=== PATIENT | male | born 1945 | race Caucasian/White ===

== ENCOUNTER 2023-09-14 01:44 | Emergency (ER) | payer OTHER, SELFPAY ==
[2023-09-14 01:44] VITALS: BMI 27.9
[2023-09-14 01:47] VITALS: BP 91/45
--- NOTE | 2023-09-14 03:29 | ED.GENMED ---
History of Present Illness
General
Chief Complaint: Fall
Source: patient and spouse
Exam Limitations: none
Time Seen by Provider: 09/14/23 03:16
Nursing documentation reviewed up to this point in time: agreed with
Travel History
Have you had any contact with someone who has COVID-19?: No
Do you have any symptoms of coronavirus? Fever > 100 degrees, chills, cough, shortness of breath, sore throat, loss of taste or smell, muscle aches, or headache?: No
History of Present Illness
History of Present Illness:
This is a 77-year-old gentleman who has history of atrial fibrillation chronically maintained on Eliquis, history of hypertension, COPD, smoker, prior history of bilateral total hip replacements.
While walking into the bathroom tonight he tripped over a throw rug falling onto his right side injuring his right lateral hip. He denies head injury nor loss of consciousness, was able to get himself up, get himself dressed and walked outside to
smoke a cigarette. He noted some right lateral hip pain that is worse with internal rotation of his hip and thus decided to come to the ED for further evaluation.
He denies neck nor back pain, denies thigh nor knee pain, denies weakness nor numbness.
He has not taken anything for discomfort.
He does have history of hypertension, monitors his blood pressure at home and generally runs 1 25-1 40 systolic.
BP at triage was 91/45 which is low for him. He denies dizziness nor lightheadedness. Repeat blood pressure during my evaluation 112/63.
Past History
Past History
ED Past Medical History: Arrthythmia (Paroxysmal atrial fibrillation), COPD, HTN and Other (Abdominal aortic aneurysm)
ED Past Surgical History: Orthopedic (Bilateral total hip replacements) and Other (Endovascular repair of a abdominal aortic aneurysm)
Social History
Tobacco: Smoker
Alcohol: Daily
Drug: None
Personal:
Living: with family
Employment: Retired
Family History
Family History: Hypertension
Phy Exam
Physical Exam
Physical Exam:
TRAUMA EXAM:
VITAL SIGNS: Vital signs reviewed, cooperative. 77-year-old gentleman appears his stated age, bright and alert, pleasant, easily communicative and in no acute distress. Accompanied by his .
DISTRESS: No active disease
EYES: Pupils reactive, no orbital trauma
NOSE: No deformity or epistaxis
FACE AND SCALP: No scalp or facial trauma, external canals no blood
NECK: Supple nontender
BACK: Back nontender, pelvis stable to compression
RESPIRATORY: No distress, scattered end expiratory wheezing bilaterally, no tender chest wall
CARDIAC: No murmur, pulses equal and strong
ABDOMEN: Soft nontender bowel sounds normal
SKIN: Skin intact no bleeding, color normal
EXTREMITIES: Mild tenderness right lateral hip. There is no soft tissue swelling, no deformity, full hip range of motion with increased pain with internal rotation only. No leg length discrepancy. Peripheral pulses are full and equal. No
tenderness to the knee nor lower legs.
NEUROLOGICAL: Alert, oriented, no motor deficits. Gait is steady.
PSYCH: Mood affect normal
Course
Orders/Labs/Results
Orders:
Orders
09/14/23 02:04
Hip, Right 2-3 Views [CR Hip - RT w/wo Pel 2-3 Vw*] Urgent
Comment:
Reason For Exam: fall pain
Include a pelvis x-ray?: Yes
09/14/23 03:29
Acetaminophen [Tylenol] 1,000 mg PO NOW STA
Vital Signs
Initial and Last Documented VS:
Initial Vital Signs
Temp Pulse Resp BP Pulse Ox
98.2 F 70 24 91/45 95
09/14/23 01:47 09/14/23 01:47 09/14/23 01:47 09/14/23 01:47 09/14/23 01:47
Last Documented Vital Signs
Temp Pulse Resp BP Pulse Ox
98.2 F 70 24 91/45 95
09/14/23 01:47 09/14/23 01:47 09/14/23 01:47 09/14/23 01:47 09/14/23 01:47
MDM/Problems Addressed
Differential Diagnosis Includes:
Patient presents after mechanical fall, tripping over a bathroom throw rug, falling onto his right side injuring his right lateral hip. No head injury, able to get himself up, get dressed and ambulate outside to his car.
He is chronically maintained on Eliquis but denies head injury, no evidence of head injury on exam and remains bright and alert. No indication for CT of the head.
No midline bony vertebral tenderness.
Right hip x-ray shows bilateral total hip replacements. There is no evidence of acute fracture. No evidence of pelvic fracture.
I suspect focal lateral hip contusion and recommend he take Tylenol as needed for pain and will give a dose now. Topical lidocaine patch is an option as well.
Recommend rest, local ice for the first 1 to 2 days and then transition to heat thereafter.
Borderline hypotension noted in triage but patient has been asymptomatic, no dizziness nor lightheadedness. Adamantly denies dizziness or lightheadedness as cause for fall and admits to tripping over a throw rug in the bathroom. BP improved upon
my evaluation 112/63.
Prompt follow-up with PCP for recheck.
*Radiology
Radiology exam reviewed: preliminary read by ED provider (X-ray shows bilateral total hip replacements. No evidence of fracture.)
*Pulse Oximetry
Patient hypoxic: no
*Critical Care Note
Total Time (30-74mins, 75-104mins- exclusive of procedures): Not Applicable
ED Attending Note
-
Portions of this chart may have been created with voice recognition software.� Occasional wrong word or��sound alike� substitutions may have occurred due to the inherent limitations of voice recognition software.
Discharge Plan
Departure
Patient Disposition: Home (Routine Discharge)
Date of Disposition: 09/14/23
Time of Disposition: 03:37
Patient with high blood pressure during this ER visit?: No
Condition: Good
Discharge Problem:
mechanical fall at home, Contusion of right hip
Instructions: Hip Pointer (DC)
Prescriptions:
No Action
multivitamin [Daily Multiple] 1 EACH tablet
1 tab PO DAILY
calcium carbonate [Calcium 600] 600 MG tablet
600 mg PO .EVERY 5 DAYS
Vitamin B Comp W-C
1 cap PO .EVERY 5 DAYS
vitamin E (dl, acetate) 400 UNITS capsule
400 units PO .EVERY 5 DAYS
omega 1-iji-cbu-fish oil 1 EACH capsule
1 ea PO .EVERY 5 DAYS
ascorbic acid (vitamin C) [Vitamin C] 500 MG tablet
500 mg PO .EVERY 5 DAYS
Eliquis 5 MG tablet
5 mg PO BID Qty: 60 0RF
metoprolol succinate 25 MG tablet extended release 24 hr
25 mg PO HS 30 Days Qty: 30 0RF
losartan 50 MG tablet
50 mg PO DAILY
pantoprazole [Protonix] 40 mg tablet,delayed release (DR/EC)
40 mg PO DAILY Qty: 14 0RF
Referrals:
Nirmala Garcia MD [Active] - Call in 1-3 days for appt
Interventions
Interventions:
*Risk Screen - Suicide Last Done: 09/14/23 01:47
*General Assessment Last Done: 09/14/23 01:47
*Neglect/Abuse Screening Last Done: 09/14/23 01:47
ED- Fall Risk Assessment Last Done: 09/14/23 01:47
*ED COVID-19 Vaccine History Last Done: 09/14/23 01:47
[2023-09-14] MEDS: TYLENOL 1000 MG PO (03:40)
[2023-09-14 03:42] VITALS: BP 112/63
== END 2023-09-14 04:05 | disposition home or self-care (01) ==
LOC: EMR 01:44
PROVIDERS: EMERGENCY PHYSICIAN Emergency Medicine; FAMILY PHYSICIAN Family Medicine
DX: S70.01XA Contusion of right hip, initial encounter (principal); W01.0XXA Fall on same level from slipping, tripping and stumbling without subsequent striking against object, initial encounter; F17.200 Nicotine dependence, unspecified, uncomplicated; Z96.643 Presence of artificial hip joint, bilateral; Z79.01 Long term (current) use of anticoagulants
CPT/HCPCS: 99283; 73502

== ENCOUNTER 2023-11-07 08:55 | Outpatient (RCR) | payer OTHER, SELFPAY | END 2023-11-07 23:59 | disposition home or self-care (01) | LOC: RPT 08:55 | PROVIDERS: ATTENDING PHYSICIAN Family Medicine | DX: M25.551 Pain in right hip (principal); R26.2 Difficulty in walking, not elsewhere classified; R26.89 Other abnormalities of gait and mobility; M62.81 Muscle weakness (generalized); R26.81 Unsteadiness on feet; Z91.81 History of falling | CPT/HCPCS: 97110; 97112; 97162 ==

== ENCOUNTER 2023-11-23 08:46 | Outpatient (RCR) | payer OTHER, SELFPAY | END 2023-11-23 10:11 | disposition home or self-care (01) | LOC: RPT 08:46 | PROVIDERS: ATTENDING PHYSICIAN Family Medicine | DX: M25.551 Pain in right hip (principal); Z91.81 History of falling; R26.2 Difficulty in walking, not elsewhere classified; R26.89 Other abnormalities of gait and mobility; Z73.6 Limitation of activities due to disability | CPT/HCPCS: 97110; 97112 ==

== ENCOUNTER → 2024-01-30 06:32 | Outpatient (REF) | payer OTHER, SELFPAY | LOC: RAD 06:32 | PROVIDERS: ATTENDING PHYSICIAN Family Medicine | DX: Z98.890 Other specified postprocedural states (principal) | CPT/HCPCS: 93923; 93925 ==

== ENCOUNTER 2024-04-29 11:30 | Emergency (ER) | payer OTHER, SELFPAY ==
[2024-04-29 11:34] VITALS: BP 135/75
[2024-04-29 12:14] LABS: % Basophils 0.8 % (0-2); % Eosinophils 2.2 % (0-6); % Immature Granulocytes 0.4 % (0-0.5); % Lymphocytes 16.3 % (20.5-51.1); % Monocytes 4.7 % (1.7-9.3); % Neutrophils 75.6 % (42.2-75.2); Absolute Basophils 0.1 10^3/uL (0-0.2); Absolute Eosinophils 0.2 10^3/uL (0-0.7); Absolute Lymphocytes 1.4 10^3/uL (1.2-3.4); Absolute Monocytes 0.4 10^3/uL (0.1-0.6); Absolute Neutrophils 6.5 10^3/uL (1.4-6.5); Hematocrit 45.6 % (39.0-52.0); Hemoglobin 15.2 g/dL (13.0-18.0); Mean Corp Hgb Conc. 33.3 g/dL (33.0-37.0); Mean Corpuscular Hgb 30.2 pg (27.0-31.0); Mean Corpuscular Volume 90.5 fL (80.0-94.0); Mean Platelet Volume 10.4 fL (7.4-10.4); Nucleated Red Blood Cells % 0 % (-); Platelet Count 200 10^3/uL (130-400); Red Blood Cell Count 5.04 10^6/uL (4.70-6.10); Red Cell Dist. Width 14.1 % (11.5-14.5); White Blood Cell Count 8.5 10^3/uL (4.8-10.8)
[2024-04-29 12:32] LABS: ALT (SGPT) 19 U/L (0-50); AST (SGOT) 22 U/L (17-59); Alkaline Phosphatase 58 U/L (38-126); Blood Urea Nitrogen 18 mg/dl (9-20); Calcium 9.2 mg/dl (8.4-10.2); Carbon Dioxide 29 mmol/L (22-30); Chloride 103 mmol/L (98-107); Glucose 146 mg/dl (70-99); Potassium 4.1 mmol/L (3.5-5.1); Sodium 141 mmol/L (135-145); Total Bilirubin 1.1 mg/dl (0.2-1.3); Total Protein 6.5 g/dl (6.3-8.2); eGFR > 60.00
[2024-04-29 12:44] VITALS: BP 135/86
[2024-04-29 12:45] VITALS: BMI 25.1
[2024-04-29 12:46] LABS: Troponin I < 0.012 ng/ml
[2024-04-29 13:00] VITALS: BP 126/72
--- NOTE | 2024-04-29 14:17 | ED.GENMED ---
History of Present Illness
General
Chief Complaint: Chest Pain
Time Seen by Provider: 04/29/24 12:23
History of Present Illness
History of Present Illness:
78-year-old male with history of A-fib on Eliquis, hypertension, AAA status post repair presenting to the emergency department for left-sided chest pain. Patient reports in the past 2 weeks has had intermittent sharp pain in his chest. Prior to
arrival, he was driving and had another episode of sharp pain followed by a fluttering in his chest. This prompted him to come to the hospital. Denies any known coronary artery disease. Reports history of ablation about 2 years ago. Denies
present chest pain or difficulty breathing. Denies abdominal pain or GI symptoms. Denies any exertional component to chest pain when it comes on. Denies fever or cough or additional acute medical complaint
Past History
Past History
ED Past Medical History: Arrthythmia (Paroxysmal atrial fibrillation), COPD, HTN and Other (Abdominal aortic aneurysm)
ED Past Surgical History: Orthopedic (Bilateral total hip replacements) and Other (Endovascular repair of a abdominal aortic aneurysm)
Social History
Tobacco: Smoker
Alcohol: Daily
Drug: None
Personal:
Living: with family
Employment: Retired
Family History
Family History: Hypertension
Phy Exam
Physical Exam
Physical Exam:
General: Well-appearing, no clinical signs of dehydration, nontoxic and in no acute distress
HEENT: protecting airway
Neck: appears supple
CV: Normal heart rate, regular rhythm
Resp: No accessory muscle use, no increased work of breathing, lungs clear to auscultation bilaterally
Abd: Soft and non-distended, no tenderness to palpation
Extremities: No deformities, no swelling, no erythema
Neuro: alert, no focal neurologic deficit
: deferred
Rectal: deferred
Psych: Normal affect
Skin: Intact
Scores
Heart Score for Chest Pain Patients
STEMI patient?: No
History: Slightly or Non-Suspicious
ECG: Normal
Age: >/= 65 years
Risk Factors: 1 or 2 Risk Factors
Troponin: </= Normal Limit
Heart Score for Chest Pain Patients: 3
Heart Score Risk: 2.5% MACE over next 6 weeks
Course
Orders/Labs/Results
Orders:
Orders
04/29/24 11:31
Electrocardiogram (*1) Urgent
Reason for Study: Chest Pain
EKG- Treatment ONCE
04/29/24 11:55
Complete Blood Count/With Diff Urgent
Comprehensive Metabolic Panel Urgent
Troponin I Urgent
04/29/24 12:58
CR Chest - 2 Views Urgent
Comment:
Reason For Exam: chest pain
04/29/24 14:30
Troponin I Urgent
Abnormal Lab Results
04/29/24
11:55
Neutrophils % 75.6 H %
(42.2-75.2)
Lymphocytes % 16.3 L %
(20.5-51.1)
Glucose 146 H mg/dl
(70-99)
04/29/24 11:55
04/29/24 11:55
Vital Signs
Initial and Last Documented VS:
Initial Vital Signs
Temp Pulse Resp BP Pulse Ox
98.1 F 72 16 135/75 98
04/29/24 11:34 04/29/24 11:34 04/29/24 11:34 04/29/24 11:34 04/29/24 11:34
Last Documented Vital Signs
Temp Pulse Resp BP Pulse Ox
98.1 F 68 16 135/86 97
04/29/24 11:34 04/29/24 12:45 04/29/24 12:45 04/29/24 12:44 04/29/24 12:45
MDM/Problems Addressed
MDM/Problems Addressed:
78-year-old male with history of hypertension, A-fib on Eliquis status post ablation presenting to the emergency department for intermittent chest pain for the past 2 weeks. Vital signs on arrival are normal.
On exam patient is well-appearing, resting comfortably, currently asymptomatic. EKG obtained, without acute ischemic abnormality or change from prior. Given duration of symptoms and intermittent nature, lower suspicion for ACS. Patient however
does have risk factors, so will obtain laboratory analysis including troponin. Will also obtain chest x-ray imaging. Lower suspicion for infectious pathology, denies fever or cough. Lower suspicion for PE, on anticoagulation, notes compliance, no
pleuritic quality. Lower suspicion for aortic catastrophe, known repair of AAA, normotensive. Will continue to closely monitor.
13:30 - Initial troponin undetectable and chest x-ray without acute cardiopulmonary disease. Will obtain second troponin.
Second troponin again undetectable. At this time lower suspicion for ACS. Feel stable for discharge, however given risk factors, advised outpatient follow-up with employment service specialist. Strict return precautions. Acute intubation patient verbalized
understanding
*EKG
Interpreted by ED Provider?: Yes
EKG Intrepretation Date: 04/29/24
EKG Intrepretation Time: 14:20
Interpretation: normal
Comparison EKG: no changes (06/16/22)
Heart Rate: 70
Rate: normal
Rhythm: sinus
Kennedy: normal axis
Interval: normal interval
QRS Pattern: normal QRS
Ischemia: no ischemia
*Critical Care Note
Total Time (30-74mins, 75-104mins- exclusive of procedures): Not Applicable
ED Attending Note
-
Portions of this chart may have been created with voice recognition software.� Occasional wrong word or��sound alike� substitutions may have occurred due to the inherent limitations of voice recognition software.
Discharge Plan
Departure
Prescriptions:
No Action
multivitamin [Daily Multiple] 1 EACH tablet
1 tab PO DAILY
calcium carbonate [Calcium 600] 600 MG tablet
600 mg PO .EVERY 5 DAYS
Vitamin B Comp W-C
1 cap PO .EVERY 5 DAYS
vitamin E (dl, acetate) 400 UNITS capsule
400 units PO .EVERY 5 DAYS
omega 1-oro-neo-fish oil 1 EACH capsule
1 ea PO .EVERY 5 DAYS
ascorbic acid (vitamin C) [Vitamin C] 500 MG tablet
500 mg PO .EVERY 5 DAYS
Eliquis 5 MG tablet
5 mg PO BID Qty: 60 0RF
metoprolol succinate 25 MG tablet extended release 24 hr
25 mg PO HS 30 Days Qty: 30 0RF
losartan 50 MG tablet
50 mg PO DAILY
pantoprazole [Protonix] 40 mg tablet,delayed release (DR/EC)
40 mg PO DAILY Qty: 14 0RF
Interventions
Interventions:
*Risk Screen - Suicide Last Done: 04/29/24 11:34
*Neglect/Abuse Screening Last Done: 04/29/24 11:34
ED- Cardiac Assessment Last Done: 04/29/24 12:46
Discharge Date and Time
Print Language: BURKINAN
[2024-04-29 14:46] VITALS: BP 153/78
[2024-04-29 15:18] LABS: Troponin I < 0.012 ng/ml
[2024-04-29 15:49] VITALS: BP 150/84
== END 2024-04-29 15:52 | disposition home or self-care (01) ==
LOC: EMR 11:30
PROVIDERS: Emergency Medicine; EMERGENCY PHYSICIAN Student in an Organized Health Care Education/Training Program; FAMILY PHYSICIAN Family Medicine
DX: R07.89 Other chest pain (principal); I48.0 Paroxysmal atrial fibrillation; Z79.01 Long term (current) use of anticoagulants; I10 Essential (primary) hypertension; F17.200 Nicotine dependence, unspecified, uncomplicated
CPT/HCPCS: 99285; 71046; 80053; 84484; 85025; 93005

== ENCOUNTER → 2024-05-17 06:24 | Outpatient (REF) | payer OTHER, SELFPAY | LOC: RAD 06:24 | PROVIDERS: ATTENDING PHYSICIAN Nurse Practitioner; FAMILY PHYSICIAN Family Medicine | DX: R07.89 Other chest pain (principal); I71.40 Abdominal aortic aneurysm, without rupture, unspecified | CPT/HCPCS: 76770 ==

== ENCOUNTER → 2024-05-31 13:34 | Outpatient (REF) | payer OTHER, SELFPAY | LOC: HWRAD 13:34 | PROVIDERS: ATTENDING PHYSICIAN Physician Assistant Surgical; FAMILY PHYSICIAN Family Medicine | DX: M97.8XXA Periprosthetic fracture around other internal prosthetic joint, initial encounter (principal) | CPT/HCPCS: 73700 ==

== ENCOUNTER → 2025-02-03 10:55 | Outpatient (REF) | payer OTHER, SELFPAY | LOC: HWRAD 10:55 | PROVIDERS: ATTENDING PHYSICIAN Surgery Vascular Surgery; FAMILY PHYSICIAN Family Medicine | DX: Z98.890 Other specified postprocedural states (principal) | CPT/HCPCS: 76770 ==

== ENCOUNTER → 2025-03-17 08:37 | Outpatient (REF) | payer OTHER, SELFPAY | LOC: HWRAD 08:37 | PROVIDERS: ATTENDING PHYSICIAN Family Medicine | DX: M85.89 Other specified disorders of bone density and structure, multiple sites (principal) | CPT/HCPCS: 77080 ==

== ENCOUNTER 2025-04-03 14:04 | Inpatient (IN) | payer OTHER, SELFPAY ==
[2025-04-03] VITALS (9 sets, daily range): BP systolic 103–147; BP diastolic 61–97; BMI 26.1; BMI 24.9
--- NOTE | 2025-04-03 09:29 | ED.GENMED ---
History of Present Illness
General
Chief Complaint: Breathing Problem
Time Seen by Provider: 04/03/25 09:14
Nursing documentation reviewed up to this point in time: agreed with
History of Present Illness
History of Present Illness:
79-year-old male presents to the ER for evaluation of cough and congestion along with shortness of breath now even with minimal exertion over the past few days. Patient's is present at bedside and states that she was recently diagnosed with
URI, had negative COVID and flu testing. Patient has not been on antibiotics recently. He has a current tobacco smoker but states that he has cut down his cigarette use. He has no prior history of need for admission for treatment of respiratory
illness. He denies any anterior chest pain but states that he feels a discomfort in his left upper back. He has a cough which is productive of sputum, slightly worsened than his baseline cough. No fevers. He reports diminished appetite, although
this has been an ongoing issue since he had COVID several months ago. He denies peripheral edema. No vomiting or diarrhea. He does not use inhalers on a daily basis. He is on long-term anticoagulation with Eliquis given his history of atrial
fibrillation status post ablation
Past History
Past History
ED Past Medical History: Arrthythmia (Paroxysmal atrial fibrillation), COPD, HTN and Other (Abdominal aortic aneurysm)
ED Past Surgical History: Orthopedic (Bilateral total hip replacements) and Other (Endovascular repair of a abdominal aortic aneurysm)
Social History
Tobacco: Smoker
Alcohol: Daily
Drug: None
Personal:
Living: with family
Employment: Retired
Family History
Family History: Hypertension
Review of Systems
Review of Systems
Allergies reviewed?: Yes
Phy Exam
Physical Exam
Physical Exam:
Patient is awake, alert, elderly, appears in no acute distress, head is NCAT, PERRL, EOMI mucous membranes moist, posterior pharynx is clear, no tonsillar exudates, no asymmetry, no stridor, no trismus, conjunctiva pink, heart regular rate and
rhythm without murmurs or ectopy, mild increased work of breathing, audible wheezing heard with rhonchi present diffusely on lung exam, no crepitus, no abnormal chest wall excursion, no JVD, abdomen is soft and nontender on palpation, extremities
without edema, GCS is 15
Course
Orders/Labs/Results
Orders:
Orders
04/03/25 09:12
Electrocardiogram (*1) Urgent
Reason for Study: Shortness of Breath
EKG- Treatment ONCE
04/03/25 09:27
Ipratropium/Albuterol Sulfate [Duoneb] 3 ml INH R NOW STA
04/03/25 09:28
Cardiac Monitoring- Treatment ONCE
IV Insert/Care/Rem.- Treatment PRN
COVID-19 Antigen Urgent
Source: Nasal Swab
Complete Blood Count/With Diff Urgent
Comprehensive Metabolic Panel Urgent
NT-proBNP Urgent
Prothrombin Time Urgent
Troponin I Urgent
CR Chest - 2 Views Urgent
Comment:
Reason For Exam: cough
Pulse Ox/cont/shift [RESP] Stat
Quantity: 1
04/03/25 09:29
Influenza A+B Rapid Molecular Urgent
SWATI Source: Nasal Swab
Specimen Description:
Vital Signs
Initial and Last Documented VS:
Initial Vital Signs
Temp Pulse Resp BP Pulse Ox
98.0 F 78 18 147/89 94
04/03/25 09:10 04/03/25 09:10 04/03/25 09:10 04/03/25 09:10 04/03/25 09:10
Last Documented Vital Signs
Temp Pulse Resp BP Pulse Ox
98.0 F 78 18 147/89 94
04/03/25 09:10 04/03/25 09:10 04/03/25 09:10 04/03/25 09:10 04/03/25 09:30
MDM/Problems Addressed
Differential Diagnosis Includes:
Differential diagnosis to consider but not limited to COVID, flu, COPD exacerbation, bronchitis, pneumonia along with other etiologies considered
Chronic conditions affecting care:
Advanced age, atrial fibrillation, current cigarette smoker, A-fib on chronic anticoagulation, hypertension, prior abdominal aortic aneurysm status post endovascular repair
*Pulse Oximetry
SaO2: 94
Oxygen Mode of Delivery: Room air
*EKG
Interpreted by ED Provider?: Yes (I independently viewed and interpreted twelve-lead EKG showing normal sinus rhythm, rate 76, leftward axis, borderline interventricular conduction delay, no ST elevation, this is a normal EKG similar to prior from
04/29/2024)
*Biomathematician Interpretation
Rate: normal (I independently viewed and interpreted rhythm strip showing normal sinus rhythm, no ectopy)
Update Note
Update Note:
Given diffuse rhonchi and wheezing heard on exam, will give DuoNeb and obtain chest x-ray along with screening labs to assess for pneumonia versus COPD exacerbation. Will also check for COVID and flu. Patient and present at bedside agree with
plan at current
ED Attending Note
-
Portions of this chart may have been created with voice recognition software.� Occasional wrong word or��sound alike� substitutions may have occurred due to the inherent limitations of voice recognition software.
Discharge Plan
Departure
Prescriptions:
No Action
multivitamin [Daily Multiple] 1 EACH tablet
1 tab PO DAILY
calcium carbonate [Calcium 600] 600 MG tablet
600 mg PO .EVERY 5 DAYS
Vitamin B Comp W-C
1 cap PO .EVERY 5 DAYS
vitamin E (dl, acetate) 400 UNITS capsule
400 units PO .EVERY 5 DAYS
omega 1-juh-gov-fish oil 1 EACH capsule
1 ea PO .EVERY 5 DAYS
ascorbic acid (vitamin C) [Vitamin C] 500 MG tablet
500 mg PO .EVERY 5 DAYS
Eliquis 5 MG tablet
5 mg PO BID Qty: 60 0RF
metoprolol succinate 25 MG tablet extended release 24 hr
25 mg PO HS 30 Days Qty: 30 0RF
losartan 50 MG tablet
50 mg PO DAILY
pantoprazole [Protonix] 40 mg tablet,delayed release (DR/EC)
40 mg PO DAILY Qty: 14 0RF
Interventions
Interventions:
*Risk Screen - Suicide Last Done: 04/03/25 09:10
*Neglect/Abuse Screening Last Done: 04/03/25 09:10
Discharge Date and Time
Print Language: JORDANIAN
[2025-04-03] MEDS: DUONEB 3 ML INH ×3 (09:41→19:29)
[2025-04-03 10:08] LABS: Hematocrit 51.2 % (39.0-52.0); Hemoglobin 17.3 g/dL (13.0-18.0); Mean Corp Hgb Conc. 33.8 g/dL (33.0-37.0); Mean Corpuscular Volume 93.8 fL (80.0-94.0); Nucleated Red Blood Cells % 0 % (-); Platelet Count 232 10^3/uL (130-400); Red Cell Dist. Width 13.2 % (11.5-14.5)
--- NOTE | 2025-04-03 10:09 | ED.GENMED ---
History of Present Illness
General
Chief Complaint: Breathing Problem
Time Seen by Provider: 04/03/25 09:14
Nursing documentation reviewed up to this point in time: agreed with
History of Present Illness
History of Present Illness:
79-year-old male presents to the ER for evaluation of shortness of breath and cough which has been worsening over the past 4 days. Patient's is present at bedside and reports that she has had URI symptoms and was seen by her PCP-had negative
COVID and flu testing and was diagnosed with URI. Patient has not been on antibiotics recently. He reports that he continues to smoke cigarettes daily. He has no prior history of requiring hospitalization for his lungs. He does not use any
inhalers on a daily basis. He reports poor appetite but this has been an ongoing issue since he had COVID several months ago. He reports an occasional feeling of fluttering in his chest and upper abdomen, but no anterior chest pain per se. He
does report a feeling of tightness in his left upper back which is associated with his cough and feeling of congestion. He reports severe shortness of breath with now minimal exertion over the past few days. No peripheral edema. No prior history
of CHF. No prior history of ACS per se but is on long-term anticoagulation for atrial fibrillation. He does have a prior history of hypertension also. He denies fever. No sore throat. No syncope.
Past History
Past History
ED Past Medical History: Arrthythmia (Paroxysmal atrial fibrillation), COPD, HTN and Other (Abdominal aortic aneurysm)
ED Past Surgical History: Orthopedic (Bilateral total hip replacements) and Other (Endovascular repair of a abdominal aortic aneurysm)
Social History
Tobacco: Smoker
Alcohol: Daily
Drug: None
Personal:
Living: with family
Employment: Retired
Family History
Family History: Hypertension
Review of Systems
Review of Systems
Allergies reviewed?: Yes
Phy Exam
Physical Exam
Physical Exam:
Patient is awake, alert, elderly, mild increased work of breathing, head is NCAT, PERRL, EOMI mucous membranes moist, no stridor, no trismus, posterior pharynx appears normal without asymmetry or exudate, conjunctiva pink, and heart regular rate and
rhythm without murmurs or ectopy, audible wheezing, rhonchi present diffusely on exam, no abnormal chest wall excursion, no crepitus, no JVD, abdomen is soft and nontender on palpation, extremities without edema, GCS is 15
Scores
Heart Failure Risk
Heart Failure Risk Score: Not Applicable
Course
Orders/Labs/Results
Orders:
Orders
04/03/25 09:12
Electrocardiogram (*1) Urgent
Reason for Study: Shortness of Breath
EKG- Treatment ONCE
04/03/25 09:27
Ipratropium/Albuterol Sulfate [Duoneb] 3 ml INH R NOW STA
04/03/25 09:28
Cardiac Monitoring- Treatment ONCE
IV Insert/Care/Rem.- Treatment PRN
CR Chest - 2 Views Urgent
Comment:
Reason For Exam: cough
Pulse Ox/cont/shift [RESP] Stat
Quantity: 1
04/03/25 09:44
COVID-19 Antigen Urgent
Source: Nasal Swab
Complete Blood Count/With Diff Urgent
Comprehensive Metabolic Panel Urgent
NT-proBNP Urgent
Prothrombin Time Urgent
Troponin I Urgent
Influenza A+B Rapid Molecular Urgent
SWATI Source: Nasal Swab
Specimen Description:
04/03/25 10:21
Legionella Urinary Antigen Urgent
SWATI Source: Urine
Specimen Description:
CefTRIAXone [Rocephin] 1,000 mg IV NOW STA
Doxycycline Hyclate [Vibramycin] 200 mg 0.9% Sodium Chloride 250 ml [Nss] 250 ml IV NOW
MethylPREDNISolone PF [Solu-Medrol Pf] 125 mg IV NOW STA
04/03/25 10:29
Blood Culture Q30M
SWATI Source: Blood/Venous
Specimen Description:
04/03/25 11:00
Blood Culture Q30M
SWTAI Source: Blood/Venous
Specimen Description:
Abnormal Lab Results
04/03/25
09:44
WBC 10.9 H 10^3/uL
(4.8-10.8)
MCH 31.7 H pg
(27.0-31.0)
Abs Immat Gran (auto) 0.1 H 10^3/uL
(0-0.05)
Absolute Neuts (auto) 8.9 H 10^3/uL
(1.4-6.5)
Absolute Lymphs (auto) 0.8 L 10^3/uL
(1.2-3.4)
Absolute Monos (auto) 0.9 H 10^3/uL
(0.1-0.6)
Immature Gran % 0.6 H %
(0-0.5)
Neutrophils % 81.7 H %
(42.2-75.2)
Lymphocytes % 7.4 L %
(20.5-51.1)
PT 16.9 H Sec
(11.4-14.6)
Creatinine 0.6 L mg/dL
(0.7-1.3)
Glucose 106 H mg/dl
(70-99)
Total Bilirubin 1.5 H mg/dl
(0.2-1.3)
04/03/25 09:44
04/03/25 09:44
Mild elevation white blood count
Vital Signs
Initial and Last Documented VS:
Initial Vital Signs
Temp Pulse Resp BP Pulse Ox
98.0 F 78 18 147/89 94
04/03/25 09:10 04/03/25 09:10 04/03/25 09:10 04/03/25 09:10 04/03/25 09:10
Last Documented Vital Signs
Temp Pulse Resp BP Pulse Ox
98.0 F 73 26 147/89 94
04/03/25 09:10 04/03/25 09:54 04/03/25 09:54 04/03/25 09:10 04/03/25 10:14
MDM/Problems Addressed
Differential Diagnosis Includes:
Differential diagnosis to consider but not limited to COVID, flu, pneumonia, COPD exacerbation, congestive heart failure, ACS along with other etiologies considered
Chronic conditions affecting care:
Atrial fibrillation on long-term anticoagulation, current smoker, advanced age
*Radiology
Radiology exam reviewed: preliminary read by ED provider (I independently viewed and interpreted two-view chest x-ray showing left lower lobe consolidation with pleural effusion, new compared to prior x-ray)
*Pulse Oximetry
SaO2: 94
Oxygen Mode of Delivery: Room air
Patient hypoxic: no
*EKG
Interpreted by ED Provider?: Yes (I independently viewed and interpreted twelve-lead EKG showing normal sinus rhythm, rate 76, nonspecific intraventricular conduction delay without ST elevation, no change compared to prior 04/29/2024)
*[employer] Interpretation
Rate: normal (I independently viewed and interpreted rhythm strip showing normal sinus rhythm, no ectopy)
*Critical Care Note
Total Time (30-74mins, 75-104mins- exclusive of procedures): Not Applicable
Update Note
Update Note:
Will give nebulizer treatment for diffuse rhonchi heard on exam. Patient and present at bedside agree with plan for labs and x-ray. Will reassess
1022: I dependently viewed and interpreted x-ray showing new pneumonia. Broad-spectrum antibiotics ordered along with urine Legionella antigen and blood cultures. Awaiting remaining tests. Anticipate admission given increased work of breathing
and significant dyspnea on exertion
1050: Patient feeling much better after neb treatment. I reviewed with patient and present bedside presence of pneumonia and benefit of admission given severe dyspnea on exertion, although resting pulse ox is within normal limits. They agree
with plan. Patient presentation reviewed with hospitalist who accepts patient for admission.
ED Attending Note
-
Portions of this chart may have been created with voice recognition software.� Occasional wrong word or��sound alike� substitutions may have occurred due to the inherent limitations of voice recognition software.
Discharge Plan
Departure
Patient Disposition: Admit
Date of Disposition: 04/03/25
Time of Disposition: 10:53
Presentation/result/management discussed w/ accepting MD/DO: Hospitalist
Discharge Problem:
Pneumonia
Prescriptions:
No Action
Eliquis 5 MG tablet
5 mg PO BID Qty: 60 0RF
losartan 50 MG tablet
50 mg PO DAILY
acetaminophen [Tylenol] 325 mg Tablet
650 mg PO Q6HPRN PRN (Reason: mild pain)
metoprolol succinate [Toprol XL] 50 mg Tablet Extended Release 24 Hr
50 mg PO HS
Referrals:
UNKNOWN - PT NOT,INTERVIEWE [Family Provider]
Interventions
Interventions:
*Risk Screen - Suicide Last Done: 04/03/25 09:10
*General Assessment Last Done: 04/03/25 09:57
*Neglect/Abuse Screening Last Done: 04/03/25 09:10
*ED- Fall Risk Assessment Last Done: 04/03/25 09:57
*ED COVID-19 Vaccine History Last Done: 04/03/25 09:57
ED- Cardiac Assessment Last Done: 04/03/25 09:59
ED- Pulmonary Assessment Last Done: 04/03/25 09:59
Discharge Date and Time
Print Language: SAMMARINESE
[2025-04-03 10:13] LABS: INR 1.32; PT 16.9 Sec (11.4-14.6)
[2025-04-03 10:14] LABS: COVID-19 Antigen Negative (Negative)
[2025-04-03 10:21] LABS: ALT (SGPT) 16 U/L (0-50); AST (SGOT) 20 U/L (17-59); Albumin 3.7 g/dl (3.5-5.0); Alkaline Phosphatase 72 U/L (38-126); Blood Urea Nitrogen 13 mg/dl (9-20); Calcium 8.6 mg/dl (8.4-10.2); Carbon Dioxide 25 mmol/L (22-30); Chloride 106 mmol/L (98-107); Estimated Creatinine Clearance 106 ml/min; Glucose 106 mg/dl (70-99); Potassium 4.7 mmol/L (3.5-5.1); Sodium 135 mmol/L (135-145); Total Protein 6.4 g/dl (6.3-8.2); eGFR > 60.00
[2025-04-03 10:28] LABS: Troponin I < 0.012 ng/ml
[2025-04-03] MEDS: SOLU-MEDROL PF 125 MG IV (10:38)
[2025-04-03] MEDS: ROCEPHIN 1000 MG IV (11:05)
[2025-04-03] MEDS: VIBRAMYCIN 270 MG IV (11:35)
--- NOTE | 2025-04-03 13:56 | HPS.HSE ---
Family Physician
-
Family Physician: INTERVIEWE UNKNOWN - PT NOT
Chief Complaint
-
Shortness of breath
History of Present Illness
79-year-old male with past medical history of paroxysmal atrial fibrillation, hypertension, abdominal aortic aneurysm came to the hospital with dyspnea on exertion and cough that has been going on for few days. Per patient his symptoms started
after his had upper respiratory symptoms. Since the symptoms do not improve with prompted patient to come to the ED for evaluation. He denies any chest pain. Denies any abdominal pain, nausea, vomiting, diarrhea, constipation. Denies any
fever/chills. Patient still continues to smoke. He reported he smokes half pack a day.
Medical History
Past Medical History
Past Medical History: Reports Arrhythmia (Paroxysmal atrial fibrillation), HTN and Other (Abdominal aortic aneurysm)
Past Surgical History: Reports Orthopedic and Other (Endovascular repair of abdominal aortic aneurysm)
Social History
Tobacco: Smoker
Alcohol: Occasional
Drug: None
Family History
Family History: Not pertinent
Allergies / Home Medications
Allergies reflects when Allergies were last updated in [facility].
Home Medications with original date entered in [facility]
Allergy/Medication List:
Allergies
Allergy/AdvReac Type Severity Reaction Status Date / Time
No Known Allergies Allergy Verified 04/03/25 09:12
Home Medications
apixaban 5 mg tablet (Eliquis) 5 mg PO BID #60 tabs 05/06/17
losartan 50 mg tablet 50 mg PO DAILY 07/03/20
acetaminophen 325 mg tablet (Tylenol) 650 mg PO Q6HPRN PRN mild pain 04/03/25
metoprolol succinate 50 mg tablet,extended release 24 hr (Toprol XL) 50 mg PO HS 04/03/25
Review of Systems
-
History Source: Patient
A 12 point ROS was completed and negative except as noted: Yes
Respiratory: Reports Cough and Trouble Breathing
Physical Exam
Vital Signs
Vital Signs
Temp Pulse Resp BP Pulse Ox
98.0 F 82 24 140/97 94
04/03/25 09:10 04/03/25 13:15 04/03/25 13:15 04/03/25 13:00 04/03/25 10:45
Physical Exam
General: Well Nourished and No Apparent Distress
HEENT: NormoCephalic, Anicteric and Moist mucous membranes
Respiratory: Clear, Wheezes and Non Labored Respirations
Cardiac: S1/S2 and Regular Rhythm
Breast: Deferred by me
GI: Soft, Non Tender, Non Distended and Normal Bowel Sounds
Rectal: Deferred by Provider
Genito-urinary: No Rcihards
Musculoskeletal: No Edema
Neuro: Awake, Alert, Oriented and AO x 3
Psych: Calm and Intact Judgment/Insight
Laboratory Results
-
04/03/25 09:44
04/03/25 09:44
Laboratory Results
PT 16.9 Sec (11.4-14.6) H 04/03/25 09:44
INR 1.32 04/03/25 09:44
Total Bilirubin 1.5 mg/dl (0.2-1.3) H 04/03/25 09:44
AST 20 U/L (17-59) 04/03/25 09:44
ALT 16 U/L (0-50) 04/03/25 09:44
Alkaline Phosphatase 72 U/L (38-126) 04/03/25 09:44
Troponin I < 0.012 ng/ml 04/03/25 09:44
Data Reviewed
-
Diagnostic Radiology: Image Personally Visualized and interpreted and Discussed with Physician
Lab Data: Labs Reviewed by me and Discussed with Patient
Impression/Plan
-
Dyspnea likely secondary to left lower lobe pneumonia with possible associated pleural effusion
Chest x-ray consistent with pneumonia and pleural effusion
IR consult for thoracentesis, labs ordered. Current smoker
Started ceftriaxone and doxycycline
DuoNeb 4 times daily and as needed with associated bronchiolitis
COVID, flu negative. Legionella negative. Check strep
Tessalon Perles
Paroxysmal atrial fibrillation
Continue with metoprolol, Eliquis
History of hypertension
Continue losartan
History of abdominal aortic aneurysm status post repair
Follows up with vascular outpatient
Monitor
DVT prophylaxis
Eliquis
Full code
I spent a total of 76 minutes with the patient or on the floor. More than 50% of this time involved counseling and coordination of care.
[2025-04-03 16:14] LABS: LDH 218 U/L (120-246)
[2025-04-03 16:22] LABS: Body Fluid Second Tech FB
[2025-04-03] MEDS: NICODERM TRANSDERMAL 14 MG TRANSDERM (17:33)
[2025-04-03] MEDS: VIBRAMYCIN 100 MG PO (20:33)
[2025-04-03] MEDS: ELIQUIS 5 MG PO (20:34)
[2025-04-03] MEDS: TOPROL XL 50 MG PO (21:51)
[2025-04-04 03:45] VITALS: BP 135/83
[2025-04-04 06:00] VITALS: BMI 24.6
[2025-04-04] MEDS: DUONEB 3 ML INH ×4 (07:31→19:41)
[2025-04-04] MEDS: NICODERM TRANSDERMAL 14 MG TRANSDERM (08:50)
[2025-04-04] MEDS: VIBRAMYCIN 100 MG PO ×2 (08:50→21:24)
[2025-04-04] MEDS: COZAAR 50 MG PO (08:50)
[2025-04-04] MEDS: ELIQUIS 5 MG PO ×2 (08:50→21:23)
[2025-04-04 08:54] LABS: Blood Urea Nitrogen 13 mg/dl (9-20); Calcium 8.7 mg/dl (8.4-10.2); Carbon Dioxide 28 mmol/L (22-30); Chloride 105 mmol/L (98-107); Estimated Creatinine Clearance 91 ml/min; Glucose 100 mg/dl (70-99); Hematocrit 47.1 % (39.0-52.0); Hemoglobin 16.3 g/dL (13.0-18.0); Mean Corp Hgb Conc. 34.6 g/dL (33.0-37.0); Mean Corpuscular Volume 93.5 fL (80.0-94.0); Nucleated Red Blood Cells % 0 % (-); Platelet Count 239 10^3/uL (130-400); Potassium 4.3 mmol/L (3.5-5.1); Red Cell Dist. Width 13.0 % (11.5-14.5); Sodium 137 mmol/L (135-145); eGFR > 60.00
[2025-04-04 09:39] VITALS: BP 155/87
[2025-04-04] MEDS: ROCEPHIN 1000 MG IV (10:05)
[2025-04-04] MEDS: STERILE WATER FOR INJECTION 10 ML IV (10:05)
[2025-04-04 10:07] VITALS: BMI 24.6
[2025-04-04 11:05] VITALS: BP 132/66
--- NOTE | 2025-04-04 12:39 | W.PN.HOSP.TC ---
Today's Communication/Plan
-
Monitor vitals
See plan
Follow Thora studies
Pulmonary evaluation
Will need home O2 evaluation prior to discharge
Assessment / Plan
Assessment / Plan
General: Well Nourished and No Apparent Distress
HEENT: NormoCephalic, Anicteric and Moist mucous membranes
Respiratory: Clear, Wheezes and Non Labored Respirations
Cardiac: S1/S2 and Regular Rhythm
GI: Soft, Non Tender, Non Distended and Normal Bowel Sounds
Genito-urinary: No Richards
Musculoskeletal: No Edema
Neuro: Awake, Alert, Oriented and AO x 3
Psych: Calm and Intact Judgment/Insight
Dyspnea likely secondary to left lower lobe pneumonia with possible associated pleural effusion
Chest x-ray consistent with pneumonia and pleural effusion
Status post Thora centesis 04/03 with removal of 2 L fluid, appears exudative. Cytology pending.follow cx. Current smoker
Started ceftriaxone and doxycycline. Check MRSA screen
DuoNeb 4 times daily and as needed with associated bronchiolitis
COVID, flu negative. Legionella negative. Strep negative
[facility] Monahan
Pulmonary evaluation, consider CT scan after Thora
Paroxysmal atrial fibrillation
Continue with metoprolol, Eliquis
History of hypertension
Continue losartan
History of abdominal aortic aneurysm status post repair
Follows up with vascular outpatient
Monitor
DVT prophylaxis
Eliquis
Full code
I spent a total of 52 minutes with the patient or on the floor. More than 50% of this time involved counseling and coordination of care.
Anticipated Discharge: 24 - 48 hours
Subjective/Interval History
-
Date of Service: April 04, 2025
Denies pain
Objective Data
-
Labs:
Laboratory Results
04/04/25
06:46
WBC 17.5 H
Hgb 16.3
Hct 47.1
Plt Count 239
Sodium 137
Potassium 4.3
Chloride 105
Carbon Dioxide 28
BUN 13
Creatinine 0.7
Glucose 100 H
Calcium 8.7
Vital Signs:
Vital Signs
Temp Pulse Resp BP Pulse Ox
98.9 F 66 16 132/66 98
04/04/25 11:05 04/04/25 11:17 04/04/25 11:17 04/04/25 11:05 04/04/25 11:17
I&O
04/03/25 04/04/25 04/05/25
06:59 06:59 06:59
Intake Total 960 / 960 480 / 480
Balance 960 / 960 480 / 480
--- NOTE | 2025-04-04 12:40 | CON.PUL ---
Consultation
Consultation Request
Date/Time Consultation Requested: 04/04/2025
Date/Time Consultation Performed: 04/04/2024
Requesting Provider: Dr. Paniagua
Performing Provider: Dr. Eddie Valdez
Reason for Consultation: Pneumonia/pleural effusion
Medical History
-
History of Present Illness:
79-year-old male with past medical history significant for paroxysmal atrial fibrillation, hypertension, abdominal aortic aneurysm who came to the hospital complaining of exertional dyspnea and coughing for the last few days.
recently had an upper respiratory infection.
Due to above symptoms patient came to the emergency room for evaluation.
Denies hemoptysis, night sweats or chills.
Denies lightheadedness or syncope.
Denies swallowing problems.
He is an active smoker of about half a pack per day.
-
Patient reports history of chronic coughing and minimal phlegm production from his smoking.
He also has a component of chronic exertional dyspnea
For many years mainly related to leg weakness.
He does goes to the gym and he does upper body strength no cardio.
He states that his weight has been stable
Denies chest discomfort
Past Medical History
Past Medical History: Other (See assessment and plan)
Social History
Tobacco: Smoker
Alcohol: Occasional
Drug: None
Personal:
Living: With Family
Occupational Exposures: Denies
Environmental Exposures: Denies
Family History
Family History: Reviewed & Not Pertinent
Allergies / Home Medications
Allergies
Allergy/AdvReac Type Severity Reaction Status Date / Time
No Known Allergies Allergy Verified 04/03/25 09:12
Home Medications
�Medication �Instructions �Recorded �Confirmed �Last Taken �Type
apixaban 5 mg tablet (Eliquis) 5 mg PO BID #60 tabs 05/06/17 04/03/25 04/03/25 Rx
losartan 50 mg tablet 50 mg PO DAILY Blood Pressure 07/03/20 04/03/2525 History
acetaminophen 325 mg tablet 650 mg PO Q6HPRN PRN mild pain 04/03/25 04/03/25 04/02/25 History
(Tylenol)
metoprolol succinate 50 mg 50 mg PO HS Blood Pressure 04/03/25 04/03/25 04/02/25 History
tablet,extended release 24 hr
(Toprol XL)
Review of Systems
-
History Source: Patient
All other systems: Negative unless noted
Vitals / Labs / Diagnostic Testing
Vital Signs
Temp Pulse Resp BP Pulse Ox
98.9 F 66 16 132/66 98
04/04/25 11:05 04/04/25 11:17 04/04/25 11:17 04/04/25 11:05 04/04/25 11:17
Lab Data
04/04/25 06:46
04/04/25 06:46
Microbiology
04/03/25 15:34 Pleural Fluid Body Fluid Culture - Preliminary
No Growth After 18-24 Hours
04/03/25 15:34 Pleural Fluid Gram Stain - Preliminary
04/03/25 11:01 Blood/Venous Blood Culture - Preliminary
No Growth in 24 hours- Final report to follow
04/03/25 10:29 Blood/Venous Blood Culture - Preliminary
No Growth in 24 hours- Final report to follow
04/03/25 15:34 Pleural Fluid Fungal Culture - Preliminary
Culture in progress.
Positive cultures are reported as soon as detected.
Final report to follow in four to five weeks.
04/03/25 11:01 Urine Streptococcus pneumoniae Antigen (M - Final
Negative for Streptococcus pneumoniae antigen.
A negative result does not exclude infection with
Streptococcus pneumoniae. Clinical correlation is
recommended.
04/03/25 11:01 Urine Legionella Urinary Antigen - Final
Negative for Legionella pneumophila Serogroup 1 antigen.
A negative result does not rule out the possiblity of
Legionella infection due to other serogroups or species of
Legionella. Clinical correlation is recommended.
04/03/25 09:44 Nasal Swab Influenza Types A & B (ZANE) - Final
Negative for Influenza A & B, NAAT
Negative results must be combined with clinical observations
and patient history.
Nucleic Acid Amplification test (NAAT)performed on the
[employer] platform.
Diagnostic Testing:
Physical Exam
-
HEENT: Normocephalic
Cardiovascular: S1/S2
Respiratory: Wheeze (Mild bilateral expiratory.) and Non-Labored Respirations
GI: Soft and Non Distended
Neurology: Awake, Oriented, AO x 3 and No Motor Deficits
Skin: Good Color
General: Respiratory Distress (n) and Comfortable
Assessment
-
79-year-old male who is a smoker, history of atrial fibrillation on anticoagulation came to the hospital with shortness of breath and coughing for several days. On x-ray found to have left lower lobe infiltrate with associated pleural effusion. We
were consulted for evaluation of pleural effusion./Pneumonia/abnormal chest x-ray
Left community-acquired pneumonia
Chest x-ray 04/03/2025: Reviewed with left lower lobe infiltrate with associated infiltrate.
Left pleural effusion: Likely parapneumonic.
Thoracentesis 04/03/2025: pH 7.42/white blood cells 3750/80% mononuclear/glucose 182/total protein 4.1/LDH 839-exudate
Cultures-pain
Cytology
Leukocytosis
Chronic shortness of breath for years/chronic cough-chronic bronchitis likely
Conditions present prior admission:
Paroxysmal atrial fibrillation
Hypertension
Aortic abdominal aneurysm
Tobacco abuse
Assessment and plan:
Clinical picture consistent with community-acquired pneumonia with parapneumonic effusion.
Continue with current antibiotics as you are-ceftriaxone/doxycycline.
Afebrile
Follow leukocytosis
Microbiology reviewed and so far negative
MRSA screening pending
-
Body fluid of the left pleural effusion negative so far. Negative cytology.
Pleural fluid exudate. Without high risk features. It is interesting that this mononuclear-will need to follow-up cytology patient is high risk for cancer.
Will need short-term radiographic follow-up in the next 4 weeks. If there is no clearance of infiltrates CT of the chest will be necessary. I did discuss this with the patient and he understands.
-
Suspect COPD/chronic bronchitis-no PFTs available.
Mildly bronchospastic on exam-decreased breath sounds on the left
May continue nebulizer while in the hospital for secretion clearance will add Pulmicort twice a day
Acapella device for secretion clearance
If continues to wheeze can discharge nebulizers temporarily until seen in the office.
-
Smoking cessation encouraged
Agree with nicotine patch
Recommend outpatient pulmonary follow-up with pulmonary function testing etc. rule out COPD.
-
Will continue to follow.
[2025-04-04 15:50] VITALS: BP 121/63
--- NOTE | 2025-04-04 15:54 | CM ---
Patient seen bedside w/ spouse. Initial assessment completed. Patient is a 79-year-old male with past medical history of paroxysmal atrial fibrillation, hypertension, abdominal aortic aneurysm came to the hospital with dyspnea on exertion and cough
that has been going on for few days.
Patient resides w/ spouse in a single story rancher style home, no steps to enter. Patient is independent w/ ambulation, no device required. Independent w/ ADLs and personal care. Patient has shower seat in bathroom. Denies SNF/HC hx.
Address, point of contact and insurance verified
PCP: Nirmala Garcia. Left message w/ admissions to add in chart
Pharmacy: [facility]
Plan: Home, no needs likely
--- NOTE | 2025-04-04 16:25 | PTCARENOTE ---
Patient walked around unit today, denied feeling sob on exertion. Pulmonology saw patient today. Pt awaiting fluid culture results from thoracentesis
[2025-04-04] MEDS: PULMICORT 0.5 MG INH (19:41)
[2025-04-04 19:55] VITALS: BP 135/66
[2025-04-04] MEDS: TOPROL XL 50 MG PO (21:24)
[2025-04-04 23:49] VITALS: BP 155/87
[2025-04-05 03:40] VITALS: BP 145/80
[2025-04-05 05:57] VITALS: BMI 24.9
[2025-04-05] MEDS: DUONEB 3 ML INH ×3 (07:55→19:58)
[2025-04-05] MEDS: PULMICORT 0.5 MG INH ×2 (07:55→19:58)
[2025-04-05 08:30] VITALS: BP 152/87
[2025-04-05] MEDS: ELIQUIS 5 MG PO ×2 (08:47→19:46)
[2025-04-05] MEDS: VIBRAMYCIN 100 MG PO ×2 (08:47→19:46)
[2025-04-05] MEDS: COZAAR 50 MG PO (08:47)
[2025-04-05] MEDS: NICODERM TRANSDERMAL 14 MG TRANSDERM (08:47)
[2025-04-05 09:09] LABS: Hematocrit 49.2 % (39.0-52.0); Hemoglobin 16.6 g/dL (13.0-18.0); Mean Corp Hgb Conc. 33.7 g/dL (33.0-37.0); Mean Corpuscular Volume 95.0 fL (80.0-94.0); Nucleated Red Blood Cells % 0 % (-); Platelet Count 209 10^3/uL (130-400); Red Cell Dist. Width 13.2 % (11.5-14.5)
[2025-04-05 09:59] LABS: Blood Urea Nitrogen 15 mg/dl (9-20); Calcium 8.5 mg/dl (8.4-10.2); Carbon Dioxide 29 mmol/L (22-30); Chloride 104 mmol/L (98-107); Estimated Creatinine Clearance 91 ml/min; Glucose 86 mg/dl (70-99); Potassium 4.4 mmol/L (3.5-5.1); Sodium 135 mmol/L (135-145); eGFR > 60.00
[2025-04-05] MEDS: ROCEPHIN 1000 MG IV (10:33)
[2025-04-05] MEDS: STERILE WATER FOR INJECTION 10 ML IV (10:33)
[2025-04-05 11:25] VITALS: BP 131/67
--- NOTE | 2025-04-05 12:35 | W.PN.HOSP.TC ---
Today's Communication/Plan
-
Monitor vitals
See plan
Follow culture
Cytology pending
DuoNeb
Pulmonary following
Assessment / Plan
Assessment / Plan
General: Well Nourished and No Apparent Distress
HEENT: NormoCephalic, Anicteric and Moist mucous membranes
Respiratory: Clear, Wheezes and Non Labored Respirations
Cardiac: S1/S2 and Regular Rhythm
GI: Soft, Non Tender, Non Distended and Normal Bowel Sounds
Genito-urinary: No Richards
Musculoskeletal: No Edema
Neuro: Awake, Alert, Oriented and AO x 3
Psych: Calm and Intact Judgment/Insight
Dyspnea likely secondary to left lower lobe pneumonia with possible associated pleural effusion
Chest x-ray consistent with pneumonia and pleural effusion
Status post Thora centesis 04/03 with removal of 2 L fluid, appears exudative. Cytology pending.follow cx. Current smoker
Started ceftriaxone and doxycycline. MRSA screen pending
DuoNeb as needed with associated bronchiolitis
COVID, flu negative. Legionella negative. Strep negative
[facility] Mon[facility]
Pulmonary following, plan for possible CT scan outpatient in 4 weeks
Paroxysmal atrial fibrillation
Continue with metoprolol, Eliquis
History of hypertension
Continue losartan
History of abdominal aortic aneurysm status post repair
Follows up with vascular outpatient
Monitor
DVT prophylaxis
Eliquis
Full code
Anticipated Discharge: Within 24 hours
Subjective/Interval History
-
Date of Service: April 05, 2025
Denies pain
Objective Data
-
Labs:
Laboratory Results
04/05/25
08:36
WBC 10.8
Hgb 16.6
Hct 49.2
Plt Count 209
Sodium 135
Potassium 4.4
Chloride 104
Carbon Dioxide 29
BUN 15
Creatinine 0.7
Glucose 86
Calcium 8.5
Vital Signs:
Vital Signs
Temp Pulse Resp BP Pulse Ox
98.4 F 66 16 131/67 93
04/05/25 11:25 04/05/25 11:46 04/05/25 11:46 04/05/25 11:25 04/05/25 11:46
I&O
04/04/25 04/05/25 04/06/25
06:59 06:59 06:59
Intake Total 960 / 960 960 / 960
Output Total 0 / 0
Balance 960 / 960 960 / 960
[2025-04-05 15:34] VITALS: BP 130/67
--- NOTE | 2025-04-05 16:09 | CM ---
Reviewed the chart notes and spoke with the patient at the bedside. IMM reviewed.
Plan: Discharge to home with no anticipated needs identified at this time.
--- NOTE | 2025-04-05 16:48 | W.PN.PUL3 ---
Today's Communication / Plan
-
Rocephin + doxycycline to complete 7-10 days
Budesonide; I will add DuoNebs
Repeat CXR tomorrow to assure no reaccumulation of left-sided pleural fluid
Tobacco cessation strongly recommended
Given his age he will not qualify for lung cancer screening
Hopefully he can be discharged home tomorrow (04/06) and outpatient follow-up will be arranged.
In the interim, pulmonary service will continue to follow along
Assessment
-
79-year-old male who is a smoker, history of atrial fibrillation on anticoagulation came to the hospital with shortness of breath and coughing for several days. On x-ray found to have left lower lobe infiltrate with associated pleural effusion. We
were consulted for evaluation of pleural effusion./Pneumonia/abnormal chest x-ray
Left community-acquired pneumonia
Chest x-ray 04/03/2025: Reviewed with left lower lobe infiltrate with associated infiltrate.
Left pleural effusion: Likely parapneumonic.
Thoracentesis 04/03/2025: pH 7.42/white blood cells 3750/80% mononuclear/glucose 182/total protein 4.1/LDH 839-exudative
Leukocytosis
Chronic shortness of breath for years/chronic cough-chronic bronchitis likely
Conditions present prior admission:
Paroxysmal atrial fibrillation
Hypertension
Aortic abdominal aneurysm
Tobacco abuse
Assessment and plan:
Clinical picture consistent with community-acquired pneumonia with parapneumonic effusion.
Continue with current antibiotics as you are-ceftriaxone/doxycycline.
Trend WBC and monitor temperature curve
Microbiology reviewed and so far negative
MRSA screening negative unless mentioned above
-
Body fluid of the left pleural effusion negative so far. Cytopathology is pending
Pleural fluid exudate. Without high risk features.
Will need short-term radiographic follow-up in the next 4 weeks. If there is no clearance of infiltrates then CT of the chest will be necessary. Dr. Valdez did discuss this with the patient and he understands.
-
Suspect COPD/chronic bronchitis-no PFTs available.
He was mildly bronchospastic on exam-now no wheezing as of 04/05; diminished bilaterally
May continue nebulizer while in the hospital for secretion clearance; continue budesonide and I will add DuoNebs BID
Acapella device for secretion clearance
If continues to wheeze can discharge nebulizers temporarily until seen in the office.
-
Smoking cessation encouraged
Agree with nicotine patch
Recommend outpatient pulmonary follow-up with pulmonary function testing etc. rule out COPD.
-
Will continue to follow.
Hopefully he can be discharged home tomorrow (04/06) and outpatient follow-up will be arranged.
Total time spent today was 38 minutes for this encounter. Time includes reviewing laboratory test/imaging results, reviewing pertinent medical records, obtaining and reviewing medical history, performing an appropriate exam, ordering medications,
tests and procedures. Time also includes documentation of this encounter, coordinating patient care and communicating with other healthcare professionals. Total time does not include separately billed tests performed on this date of service.
Subjective Data
-
Date of Service:
Date of Service: April 05, 2025
Chief Complaint: Pulmonary Follow Up
Subjective:
Patient was seen and evaluated today at bedside (late note entry). He feels much better since thoracentesis 2 days ago. Currently denies SOB or cough. Denies chest pain, shoulder pain, back pain, [place], nausea, fevers or chills.
Review of Systems
General: Other (Negative unless mentioned above)
Objective Data
Data Reviewed
Vital Signs / I&O / Oxygen:
Vital Signs
Temp Pulse Resp BP Pulse Ox
98.4 F 68 18 152/87 95
04/05/25 08:30 04/05/25 08:30 04/05/25 08:30 04/05/25 08:30 04/05/25 08:30
Intake and Output
04/04/25 04/05/25 04/06/25
06:59 06:59 06:59
Intake Total 960 / 960 960 / 960
Output Total 0 / 0
Balance 960 / 960 960 / 960
SaO2 95
Physical Exam
General: Respiratory Distress (negative), Comfortable, Chills (negative) and Sweats (negative)
HEENT: Normocephalic and Anicteric
Cardiovascular: S1-S2, Irregular Rhythm (Irregularly irregular) and Peripheral Edema (negative)
Respiratory: Wheeze (negative), Crackles (negative), Rhonchi (negative), Non-Labored Respirations, Stridor (negative) and Other (Diminished breath sounds bilaterally)
GI: Soft, Non Distended, Non Tender and Normal Bowel Sounds
Neurology: AO x 3 and Tremors (negative)
Skin: Warm, Dry, Cyanosis (negative) and Jaundice (negative)
Labs/Micro/Reports
Lab Data
04/05/25 08:36
Microbiology
04/03/25 15:34 Pleural Fluid Body Fluid Culture - Preliminary
No Growth After 18-24 Hours
04/03/25 15:34 Pleural Fluid Gram Stain - Preliminary
04/03/25 11:01 Blood/Venous Blood Culture - Preliminary
No Growth in 24 hours- Final report to follow
04/03/25 10:29 Blood/Venous Blood Culture - Preliminary
No Growth in 24 hours- Final report to follow
04/03/25 15:34 Pleural Fluid Fungal Culture - Preliminary
Culture in progress.
Positive cultures are reported as soon as detected.
Final report to follow in four to five weeks.
04/03/25 11:01 Urine Streptococcus pneumoniae Antigen (M - Final
Negative for Streptococcus pneumoniae antigen.
A negative result does not exclude infection with
Streptococcus pneumoniae. Clinical correlation is
recommended.
04/03/25 11:01 Urine Legionella Urinary Antigen - Final
Negative for Legionella pneumophila Serogroup 1 antigen.
A negative result does not rule out the possiblity of
Legionella infection due to other serogroups or species of
Legionella. Clinical correlation is recommended.
04/03/25 09:44 Nasal Swab Influenza Types A & B (ZANE) - Final
Negative for Influenza A & B, NAAT
Negative results must be combined with clinical observations
and patient history.
Nucleic Acid Amplification test (NAAT)performed on the
[employer] platform.
[2025-04-05 19:42] VITALS: BP 112/66
[2025-04-05] MEDS: TOPROL XL 50 MG PO (21:25)
[2025-04-05 23:35] VITALS: BP 131/77
[2025-04-06 03:35] VITALS: BP 138/73
[2025-04-06 06:00] VITALS: BMI 24.7
[2025-04-06 06:57] LABS: Hematocrit 47.8 % (39.0-52.0); Hemoglobin 15.9 g/dL (13.0-18.0); Mean Corp Hgb Conc. 33.3 g/dL (33.0-37.0); Mean Corpuscular Volume 93.9 fL (80.0-94.0); Nucleated Red Blood Cells % 0 % (-); Platelet Count 195 10^3/uL (130-400); Red Cell Dist. Width 13.0 % (11.5-14.5)
[2025-04-06 07:22] LABS: Blood Urea Nitrogen 14 mg/dl (9-20); Calcium 8.4 mg/dl (8.4-10.2); Carbon Dioxide 28 mmol/L (22-30); Chloride 104 mmol/L (98-107); Estimated Creatinine Clearance 79 ml/min; Glucose 91 mg/dl (70-99); Potassium 4.5 mmol/L (3.5-5.1); Sodium 134 mmol/L (135-145); eGFR > 60.00
[2025-04-06] MEDS: DUONEB 3 ML INH (07:51)
[2025-04-06] MEDS: PULMICORT 0.5 MG INH (07:51)
[2025-04-06 08:10] VITALS: BP 137/76
[2025-04-06] MEDS: ELIQUIS 5 MG PO (08:50)
[2025-04-06] MEDS: NICODERM TRANSDERMAL 14 MG TRANSDERM (08:50)
[2025-04-06] MEDS: VIBRAMYCIN 100 MG PO (08:50)
[2025-04-06] MEDS: COZAAR 50 MG PO (08:50)
[2025-04-06] MEDS: STERILE WATER FOR INJECTION 10 ML IV (10:16)
[2025-04-06] MEDS: ROCEPHIN 1000 MG IV (10:17)
--- NOTE | 2025-04-06 11:06 | W.PN.HOSP.TC ---
Addendum entered and electronically signed by Raffaele Paniagua MD 04/06/25 14:41:
Time of discharge 38 minutes
Original Note:
Today's Communication/Plan
-
Monitor vital signs see plan
Repeat x-ray today discussed with pulmonary, okay to discharge home today with outpatient follow-up
DuoNeb, Pulmicort
dc on PO Antibiotic
Assessment / Plan
Assessment / Plan
General: Well Nourished and No Apparent Distress
HEENT: NormoCephalic, Anicteric and Moist mucous membranes
Respiratory: Clear, Wheezes and Non Labored Respirations
Cardiac: S1/S2 and Regular Rhythm
GI: Soft, Non Tender, Non Distended and Normal Bowel Sounds
Genito-urinary: No Richards
Musculoskeletal: No Edema
Neuro: Awake, Alert, Oriented and AO x 3
Psych: Calm and Intact Judgment/Insight
Dyspnea likely secondary to left lower lobe pneumonia with possible associated pleural effusion
Chest x-ray consistent with pneumonia and pleural effusion
Status post Thora centesis 04/03 with removal of 2 L fluid, appears exudative. Cytology pending.follow cx. Current smoker
Started ceftriaxone and doxycycline.
DuoNeb as needed with associated bronchiolitis, added pulmicort
COVID, flu negative. Legionella negative. Strep negative
Tessusanon Taniya
Pulmonary following, plan for possible CT scan outpatient in 4 weeks
repeat xray discussed with pulmonary, still some pleural effusion however improved. Some atelectasis. Per pulmonary patient is okay to be discharged home with close follow-up with them outpatient
Paroxysmal atrial fibrillation
Continue with metoprolol, Eliquis
History of hypertension
Continue losartan
History of abdominal aortic aneurysm status post repair
Follows up with vascular outpatient
Monitor
DVT prophylaxis
Eliquis
Full code
Anticipated Discharge: Today
Subjective/Interval History
-
Date of Service: April 06, 2025
Denies shortness of breath
Objective Data
-
Labs:
Laboratory Results
04/06/25
06:40
WBC 10.8
Hgb 15.9
Hct 47.8
Plt Count 195
Sodium 134 L
Potassium 4.5
Chloride 104
Carbon Dioxide 28
BUN 14
Creatinine 0.8
Glucose 91
Calcium 8.4
Vital Signs:
Vital Signs
Temp Pulse Resp BP Pulse Ox
98.4 F 70 16 137/76 93
04/06/25 08:10 04/06/25 08:10 04/06/25 08:10 04/06/25 08:10 04/06/25 08:45
I&O
04/05/25 04/06/25 04/07/25
06:59 06:59 06:59
Intake Total 960 / 960 240 / 240
Output Total 0 / 0
Balance 960 / 960 240 / 240
--- NOTE | 2025-04-06 11:36 | W.PN.PUL3 ---
Today's Communication / Plan
-
Rocephin + doxycycline to complete 7-10 days
Can DC home on Budesonide + DuoNebs BID, and can use DuoNebs q4-6 hrs prn SOB/wheezing
Tobacco cessation strongly recommended
Given his age he will not qualify for lung cancer screening
Stable for discharge home from Pulmonary perspective - Pulmonary service will now sign off. Please call back with any questions or concerns. Recommend to discuss with case management in regards to getting pt home O2
Assessment
-
79-year-old male who is a smoker, history of atrial fibrillation on anticoagulation came to the hospital with shortness of breath and coughing for several days. On x-ray found to have left lower lobe infiltrate with associated pleural effusion. We
were consulted for evaluation of pleural effusion./Pneumonia/abnormal chest x-ray
Left community-acquired pneumonia
Chest x-ray 04/03/2025: Reviewed with left lower lobe infiltrate with associated infiltrate.
Left pleural effusion: Likely parapneumonic.
Thoracentesis 04/03/2025: pH 7.42/white blood cells 3750/80% mononuclear/glucose 182/total protein 4.1/LDH 839-exudative
Leukocytosis - resolved since 04/05
Chronic shortness of breath for years/chronic cough-chronic bronchitis likely
Conditions present prior admission:
Paroxysmal atrial fibrillation
Hypertension
Aortic abdominal aneurysm
Tobacco abuse
Assessment and plan:
Clinical picture consistent with community-acquired pneumonia with parapneumonic effusion.
Continue with current antibiotics as you are-ceftriaxone/doxycycline.
Would plan for at least 7-10 days ABx
Trend WBC and monitor temperature curve
Microbiology reviewed and so far negative
MRSA screening negative unless mentioned above
-
Body fluid of the left pleural effusion negative so far. Cytopathology is pending
Pleural fluid exudate. Without high risk features.
Will need short-term radiographic follow-up in the next 4 weeks. If there is no clearance of infiltrates then CT of the chest will be necessary. Dr. Valdez did discuss this with the patient and he understands.
-
Suspect COPD/chronic bronchitis-no PFTs available.
He was mildly bronchospastic on exam- now resolved since 04/05; diminished bilaterally
May continue nebulizer while in the hospital for secretion clearance; continue budesonide and DuoNebs BID
Acapella device for secretion clearance
Discharge home on budesonide + DuoNebs BID with Duonebs also q4-6hr prn SOB/wheezing; medication decision will be further discussed in the pulmonary office
-
Smoking cessation encouraged
Agree with nicotine patch
Recommend outpatient pulmonary follow-up with pulmonary function testing etc. rule out COPD.
-
Patient is stable for discharge from pulmonary perspective. Signing off. Thank you for allowing us to be involved in the care of this patient. Call back with any questions or concerns.
Total time spent today was 43 minutes for this encounter. Time includes reviewing laboratory test/imaging results, reviewing pertinent medical records, obtaining and reviewing medical history, performing an appropriate exam, ordering medications,
tests and procedures. Time also includes documentation of this encounter, coordinating patient care and communicating with other healthcare professionals. Total time does not include separately billed tests performed on this date of service.
Subjective Data
-
Date of Service:
Date of Service: April 06, 2025
Chief Complaint: Pulmonary Follow Up
Subjective:
Patient was seen and evaluated this AM (late note entry). CXR today shows slight increase in size of L-sided pleural effusion. He feels well despite this, with no SOB, no chest pain, shoulder pain or back pain. Eager to go home.
Patient was seen and evaluated on 04/06/2025.
Review of Systems
General: Other (Negative unless mentioned above)
Objective Data
Data Reviewed
Vital Signs / I&O / Oxygen:
Vital Signs
Temp Pulse Resp BP Pulse Ox
98.4 F 70 16 137/76 93
04/06/25 08:10 04/06/25 08:10 04/06/25 08:10 04/06/25 08:10 04/06/25 08:10
Intake and Output
04/05/25 04/06/25 04/07/25
06:59 06:59 06:59
Intake Total 960 / 960 240 / 240
Output Total 0 / 0
Balance 960 / 960 240 / 240
SaO2 93
Physical Exam
General: Respiratory Distress (negative), Comfortable, Chills (negative) and Sweats (negative)
HEENT: Normocephalic and Anicteric
Cardiovascular: Irregular Rhythm (Irregularly irregular) and Peripheral Edema (negative)
Respiratory: Wheeze (negative), Crackles (negative), Rhonchi (negative), Non-Labored Respirations, Stridor (negative) and Other (Diminished breath sounds bilaterally (L>R))
GI: Soft, Non Distended, Non Tender and Normal Bowel Sounds
Neurology: AO x 3 and Tremors (negative)
Skin: Warm, Dry, Cyanosis (negative) and Jaundice (negative)
Labs/Micro/Reports
Lab Data
04/06/25 06:40
04/06/25 06:40
Microbiology
04/04/25 11:45 Nose MRSA Screen - Final
No Methicillin Resistant Staphylococcus aureus isolated.
04/03/25 11:01 Blood/Venous Blood Culture - Preliminary
No Growth in 48 hours- Final report to follow
04/03/25 10:29 Blood/Venous Blood Culture - Preliminary
No Growth in 48 hours- Final report to follow
04/03/25 15:34 Pleural Fluid Body Fluid Culture - Preliminary
No Growth After 48 Hours
04/03/25 15:34 Pleural Fluid Gram Stain - Preliminary
04/03/25 15:34 Pleural Fluid Fungal Culture - Preliminary
Culture in progress.
Positive cultures are reported as soon as detected.
Final report to follow in four to five weeks.
04/03/25 11:01 Urine Streptococcus pneumoniae Antigen (M - Final
Negative for Streptococcus pneumoniae antigen.
A negative result does not exclude infection with
Streptococcus pneumoniae. Clinical correlation is
recommended.
04/03/25 11:01 Urine Legionella Urinary Antigen - Final
Negative for Legionella pneumophila Serogroup 1 antigen.
A negative result does not rule out the possiblity of
Legionella infection due to other serogroups or species of
Legionella. Clinical correlation is recommended.
04/03/25 09:44 Nasal Swab Influenza Types A & B (ZANE) - Final
Negative for Influenza A & B, NAAT
Negative results must be combined with clinical observations
and patient history.
Nucleic Acid Amplification test (NAAT)performed on the
[employer] platform.
[2025-04-06 11:46] VITALS: BP 137/75
--- NOTE | 2025-04-06 13:13 | W.DCSUMMARY ---
Discharge Summary
Discharge Data
Date of Admission: 04/03/25
Date of Discharge: 04/06/25
-
Pending Results: No
Hospital Course
79-year-old male with past medical history of hypertension, abdominal aortic aneurysm status postrepair, paroxysmal atrial fibrillation came to the hospital with dyspnea which was likely thought was secondary to pneumonia. Patient x-ray was also
consistent with pleural effusion. He required thoracentesis on admission with removal of 2 L of fluid. Fluid appeared exudative in nature. Patient was seen by pulmonary throughout hospitalization. For his pneumonia he was initially started on IV
antibiotic which were later transitioned to p.o. antibiotics prior to discharge. Cytology and culture was still pending from thoracentesis which pulmonary asked patient to follow-up with them closely outpatient. He also had associated
bronchiolitis for which she was started on DuoNeb along with Pulmicort which was continued on discharge. Once his symptoms continue to improve, he was then discharged home with instructions to follow-up with all his physicians outpatient.
Discharge Plan
-
Patient Disposition: Home (Routine Discharge)
Discharge Diagnosis/Procedures: Dyspnea secondary to left lower lobe pneumonia with associated parapneumonic effusion
Suspected bronchialitis
Condition: Fair
Diet: As tolerated
Activity: As tolerated
Driving Restrictions: As prior to admission
Bathing Restrictions: None
Activity Restrictions/Additional Instructions:
If feels short of breath symptoms please contact your primary care provider or pulmonary for repeat chest imaging
Follow-up with pending thoracentesis studies with pulmonology
Referrals:
Eddie Finnegan MD [Active, Pulmonary Medicine] - in one to two weeks
UNKNOWN - PT NOT,INTERVIEWE [Unknown Provider] - in less than 1 week
Prescriptions:
New
(DME) nebulizer and compressor Device
See Rx Instructions .Route Qty: 1 0RF
Rx Instructions:
As directed
ipratropium-albuterol 0.5 mg-3 mg(2.5 mg base)/3 mL Solution For Nebulization
3 ml inhalation R Q4HPRN PRN (Reason: sob or wheezing) Qty: 0 0RF
ipratropium-albuterol 0.5 mg-3 mg(2.5 mg base)/3 mL Solution For Nebulization
3 ml inhalation R BID Qty: 180 0RF
nicotine 14 mg/24 hr Patch 24 Hour
14 mg transdermal DAILY Qty: 28 0RF
budesonide 0.5 mg/2 mL Suspension For Nebulization
0.5 mg inhalation R BID Qty: 60 0RF
doxycycline hyclate 100 mg Capsule
100 mg PO Q12 Qty: 14 0RF
cefdinir 300 mg capsule
300 mg PO BID Qty: 14 0RF
Probiotic 10 billion cell capsule
10,000 mmu cells PO DAILY Qty: 10 0RF
albuterol sulfate [Ventolin HFA] 90 mcg/actuation HFA aerosol inhaler
2 puff inhalation Q6H PRN (Reason: shortness of breath or wheezing) Qty: 6.7 0RF
Continued
Eliquis 5 MG tablet
5 mg PO BID Qty: 60 0RF
losartan 50 MG tablet
50 mg PO DAILY
acetaminophen [Tylenol] 325 mg Tablet
650 mg PO Q6HPRN PRN (Reason: mild pain)
metoprolol succinate [Toprol XL] 50 mg Tablet Extended Release 24 Hr
50 mg PO HS
Discharge Orders:
Discharge Patient (As Directed); Ordered 04/06/25
Ordered By: Raffaele Paniagua
Discharge Date and Time
Print Language: BENGALI
== END 2025-04-06 15:09 | disposition home or self-care (01) | DRG 194 ==
LOC: 4 EAST ACU 14:04
PROVIDERS: Radiology Vascular & Interventional Radiology; ADMITTING PHYSICIAN Internal Medicine; CONSULT PHYSICIAN Internal Medicine Critical Care Medicine; EMERGENCY PHYSICIAN Emergency Medicine; FAMILY PHYSICIAN Family Medicine
PROC: 0W993ZZ Drainage of Right Pleural Cavity, Percutaneous Approach (ICD-10-PCS; 2025-04-03)
DX: J18.9 Pneumonia, unspecified organism (principal); J44.0 Chronic obstructive pulmonary disease with (acute) lower respiratory infection; J91.8 Pleural effusion in other conditions classified elsewhere; Z11.52 Encounter for screening for COVID-19; I48.0 Paroxysmal atrial fibrillation; I10 Essential (primary) hypertension; I71.40 Abdominal aortic aneurysm, without rupture, unspecified; F17.210 Nicotine dependence, cigarettes, uncomplicated; Z79.01 Long term (current) use of anticoagulants; Z79.899 Other long term (current) drug therapy; Z86.16 Personal history of COVID-19; Z86.79 Personal history of other diseases of the circulatory system; Z96.643 Presence of artificial hip joint, bilateral
CPT/HCPCS: 32555; 71045; 71046; 80048; 80053; 82945; 83615; 83880; 83986; 84157; 84484; 85025; 85610; 87015; 87040; 87070; 87102; 87205; 87449; 87502; 87811; 87899; 88112; 88305; 88341; 88342; 89051; 93005; 94640; 94760; 96365; 96375; 99285; 99406

== ENCOUNTER 2025-04-16 16:41 | Inpatient (IN) | payer OTHER, SELFPAY ==
[2025-04-16] VITALS (9 sets, daily range): BP systolic 101–151; BP diastolic 69–93; BMI 25.0
--- NOTE | 2025-04-16 13:21 | ED.GENMED ---
History of Present Illness
General
Chief Complaint: Breathing Problem
Source: patient
Exam Limitations: none
Time Seen by Provider: 04/16/25 12:45
History of Present Illness
History of Present Illness:
79-year-old male recurring and progressive shortness of breath. Recent admission for thoracentesis and pleural effusion. No chest pain no fever. Symptoms are moderate in nature.
Past History
Past History
ED Past Medical History: Arrthythmia (Paroxysmal atrial fibrillation), COPD, HTN and Other (Abdominal aortic aneurysm)
ED Past Surgical History: Orthopedic (Bilateral total hip replacements) and Other (Endovascular repair of a abdominal aortic aneurysm)
Social History
Tobacco: Smoker
Alcohol: Daily
Drug: None
Personal:
Living: with family
Employment: Retired
Family History
Family History: Hypertension
Review of Systems
Review of Systems
All Other Systems: Not applicable
Constitutional: Denies fever
Cardiac: Reports no symptoms
Phy Exam
Physical Exam
Physical Exam:
GENERAL: Alert and oriented in no apparent distress
EYE: Orbits normal.
NECK: Supple
CARDIAC: Regular rate and rhythm without any obvious murmurs.
LUNGS: Mild tachypnea at rest. Mild to moderate with any exertion. Some breathlessness with speaking. Decreased breath sounds diffusely but more decreased in the left base.
ABDOMEN: Soft, without focal tenderness or distention
NEUROLOGICAL: Alert and oriented , grossly non-focal
SKIN: Warm and dry, no rash or lesion, no discoloration, skin intact.
MUSCULOSKELETAL: No edema,no deformity.Good color
PSYCH: Normal and appropriate interaction.
Scores
Heart Failure Risk
Heart Failure Risk Score: Not Applicable
Course
Orders/Labs/Results
Orders:
Orders
04/16/25 10:22
CR Chest - 2 Views Urgent
Comment:
Reason For Exam: shortness of breath
04/16/25 13:06
Cardiac Monitoring- Treatment ONCE
IV Insert/Care/Rem.- Treatment PRN
Dexamethasone Sod Phosphate [Decadron] 4 mg IV NOW STA
Ipratropium/Albuterol Sulfate [Duoneb] 3 ml INH R NOW STA
Pulse Ox/cont/shift [RESP] Stat
Quantity: 1
04/16/25 13:07
Electrocardiogram (*1) Stat
Reason for Study: Other
Other Reason for Exam: pneumonia
EKG- Treatment ONCE
04/16/25 13:27
Basic Metabolic Panel Urgent
COVID-19 Antigen Urgent
Source: Nasal Swab
Complete Blood Count/With Diff Urgent
04/16/25 Dinner
Regular
At Your Request: Full Participation
04/16/25 16:12
Admit/Transfer Patient As Directed
Co-Sign Provider:
Level of Care: Inpatient admission
Assign to:: Medical/Surgical
Physician / Group: mariia
Diagnosis: moderate pleural effusion
Reason for Hospitalization: moderate pleural effusion
Expected length of stay greater than two midnights?: Yes
ELOS- Estimated Length of Stay in days: 2
I certify the patient meets the requirements for IP care: Yes
PRN Pain Medication Management As Directed
May give lesser potent ordered pain med per pt: Yes
preference::
Protocol:: Medication orders for pain may be administered in a
manner that supports deferring to patient preference
when the pt is:
- Requesting an ordered lesser potent pain medication.
Least to most potent pain medications are defined
as: acetaminophen < NSAID < tramadol < opioids
(morphine, oxycodone, hydromorphone).
- Requesting a lesser dose of the same medication IF
ORDERED.
- Requesting a less intrusive route of administration
if both routes are prescribed by the provider (PO <
IV).
04/16/25 16:13
Code Status As Directed
Resuscitation Status: Full Code
04/16/25 20:29
Acetaminophen [Tylenol] 650 mg PO Q6HPRN PRN mild pain
Albuterol [ProAIR HFA INHALER] 2 puff INH R Q6HPRN PRN shortness of breath or wheezing
Budesonide [Pulmicort] 0.5 mg INH R BID
Ipratropium/Albuterol Sulfate [Duoneb] 3 ml INH R BID
04/16/25 20:29
PULMONARY CONSULT Routine
Consulting Provider: Savanna Yao
Was physician already notified: Yes
VTE Contraindication Routine
VTE Mechanical Device Contraindication: Medical Contraindication
Pharmocologic Contraindication: Medical Contraindication
Activity As Directed
Activity Level: As Tolerated
Vital Signs As Directed
Frequency: Per unit guidelines
04/16/25 22:00
Apixaban [Eliquis] 5 mg PO BID
Metoprolol Xl [Toprol Xl] 50 mg PO HS
04/17/25 05:28
Comprehensive Metabolic Panel IN AM
04/17/25 05:29
Complete Blood Count/With Diff IN AM
04/17/25 08:00
Nicotine [Nicoderm Transdermal] 14 mg TRANSDERM DAILY
Abnormal Lab Results
04/16/25
13:27
WBC 14.9 H 10^3/uL
(4.8-10.8)
Abs Immat Gran (auto) 0.1 H 10^3/uL
(0-0.05)
Absolute Neuts (auto) 12.4 H 10^3/uL
(1.4-6.5)
Absolute Lymphs (auto) 1.0 L 10^3/uL
(1.2-3.4)
Absolute Monos (auto) 1.1 H 10^3/uL
(0.1-0.6)
Immature Gran % 0.7 H %
(0-0.5)
Neutrophils % 83.4 H %
(42.2-75.2)
Lymphocytes % 6.8 L %
(20.5-51.1)
Potassium 5.3 H mmol/L
(3.5-5.1)
Glucose 105 H mg/dl
(70-99)
04/16/25 13:27
04/16/25 13:27
Vital Signs
Initial and Last Documented VS:
Initial Vital Signs
Temp Pulse Resp BP Pulse Ox
98.2 F 79 20 112/69 90
04/16/25 10:17 04/16/25 10:17 04/16/25 10:17 04/16/25 10:17 04/16/25 10:17
Last Documented Vital Signs
Temp Pulse Resp BP Pulse Ox
97.8 F 73 16 122/60 92
04/18/25 14:06 04/18/25 14:06 04/18/25 14:06 04/18/25 14:06 04/18/25 14:06
MDM/Problems Addressed
Differential Diagnosis Includes:
Patient with recurring and progressive shortness of breath. Recurring left pleural effusion. I reviewed all the previous data and unfortunately this appears to be an adenocarcinoma. Patient was updated on this. I suspect there is a component of
COPD also. Warrants inpatient management.
*Pulse Oximetry
SaO2: 94
Oxygen Mode of Delivery: Room air
Patient hypoxic: no
*EKG
Interpreted by ED Provider?: Yes
Interpretation: abnormal
Comparison EKG: changes noted
Heart Rate: 79
Rate: normal
Rhythm: sinus
Novi: normal axis
Interval: normal interval
QRS Pattern: poor R-wave progression
Ischemia: non-specific ST changes
*Reliability Technologist Interpretation
Rate: normal
Interpretation: normal
Heart Rate: 80
Rhythm: sinus
*Critical Care Note
Total Time (30-74mins, 75-104mins- exclusive of procedures): Not Applicable
Data Reviewed
Review of Other/Old Records Reveals: Labs, Records, Radiology Studies, Testing and Discharge Summary
ED Attending Note
-
Portions of this chart may have been created with voice recognition software.� Occasional wrong word or��sound alike� substitutions may have occurred due to the inherent limitations of voice recognition software.
Discharge Plan
Departure
Patient Disposition: Admit
Date of Disposition: 04/16/25
Time of Disposition: 14:13
Presentation/result/management discussed w/ accepting MD/DO: Hospitalist
Discharge Problem:
Respiratory distress, Recurring left pleural effusion, New adenocarcinoma diagnosis
Interventions
Interventions:
*Risk Screen - Suicide Last Done: 04/16/25 20:44
*General Assessment Last Done: 04/16/25 13:01
*Nursing Disposition Last Done: 04/16/25 20:27
ED- Cardiac Assessment Last Done: 04/16/25 13:01
ED- Pulmonary Assessment Last Done: 04/16/25 13:01
Discharge Date and Time
Discharge Date/Time: 04/16/25 20:28
[2025-04-16] MEDS: DECADRON 4 MG IV (13:27)
[2025-04-16] MEDS: DUONEB 3 ML INH ×2 (13:28→20:48)
[2025-04-16 13:53] LABS: Hematocrit 48.9 % (39.0-52.0); Hemoglobin 16.3 g/dL (13.0-18.0); Mean Corp Hgb Conc. 33.3 g/dL (33.0-37.0); Mean Corpuscular Volume 93.0 fL (80.0-94.0); Nucleated Red Blood Cells % 0 % (-); Platelet Count 280 10^3/uL (130-400); Red Cell Dist. Width 12.7 % (11.5-14.5)
[2025-04-16 14:11] LABS: Blood Urea Nitrogen 17 mg/dl (9-20); Calcium 8.9 mg/dl (8.4-10.2); Carbon Dioxide 30 mmol/L (22-30); Chloride 106 mmol/L (98-107); Glucose 105 mg/dl (70-99); Potassium 5.3 mmol/L (3.5-5.1); Sodium 138 mmol/L (135-145); eGFR > 60.00
[2025-04-16 14:24] LABS: COVID-19 Antigen Negative (Negative)
--- NOTE | 2025-04-16 16:18 | HPS.HSE ---
Family Physician
-
Family Physician: Nirmala Garcia
Chief Complaint
-
shortness of breath
History of Present Illness
79-year-old male past medical history of hypertension, abdominal aortic aneurysm status post repair, paroxysmal atrial fibrillation, COPD presenting with progressive shortness of breath over the past few days. He has slight cough. He has pain on
the left side of his back which he had when he previously had pleural effusion. Denies any fevers or chills. Denies any chest pain. Denies vomiting or diarrhea or lower extremity swelling. He did lose weight from the previous thoracentesis.
He is a smoker but he has not smoked in a few weeks. Has alcohol use.
Medical History
Past Medical History
Past Medical History: Reports Other (hypertension, abdominal aortic aneurysm status post repair, paroxysmal atrial fibrillation, COPD)
Past Surgical History: Reports Other (Orthopedic (Bilateral total hip replacements) and Other (Endovascular repair of a abdominal aortic aneurysm )
Social History
Tobacco: Smoker
Alcohol: None
Drug: None
Family History
Family History: Not pertinent
Allergies / Home Medications
Allergies reflects when Allergies were last updated in [facility].
Home Medications with original date entered in [facility]
Allergy/Medication List:
Allergies
Allergy/AdvReac Type Severity Reaction Status Date / Time
No Known Allergies Allergy Verified 04/16/25 10:20
Home Medications
apixaban 5 mg tablet (Eliquis) 5 mg PO BID #60 tabs 05/06/17
losartan 50 mg tablet 50 mg PO DAILY Blood Pressure 07/03/20
acetaminophen 325 mg tablet (Tylenol) 650 mg PO Q6HPRN PRN mild pain 04/03/25
metoprolol succinate 50 mg tablet,extended release 24 hr (Toprol XL) 50 mg PO HS Blood Pressure 04/03/25
budesonide 0.5 mg/2 mL suspension for nebulization 0.5 mg (2 mL) inhalation R BID #60 mL 04/06/25
ipratropium 0.5 mg-albuterol 3 mg (2.5 mg base)/3 mL nebulization soln 3 ml inhalation R BID #180 mL 04/06/25
nicotine 14 mg/24 hr daily transdermal patch 14 mg transdermal DAILY #28 ea 04/06/25
albuterol sulfate 90 mcg/actuation aerosol inhaler (Ventolin HFA) 2 puff inhalation R Q6HPRN PRN shortness of breath or wheezing 04/16/25
Review of Systems
-
History Source: Patient
A 12 point ROS was completed and negative except as noted: Yes
Constitutional: Reports No Symptoms
EENT: Reports No Symptoms
Respiratory: Reports See HPI
Cardiac: Reports No Symptoms
Abdomen/GI: Reports No Symptoms
: Reports No Symptoms
Musculoskeletal: Reports No Symptoms
Skin: Reports No Symptoms
Neurological: Reports No Symptoms
Endocrine: Reports No Symptoms
Hematologic/Lymphatic: Reports No Symptoms
Psych: Reports No Symptoms
Physical Exam
Vital Signs
Vital Signs
Temp Pulse Resp BP Pulse Ox
98.2 F 85 21 131/78 91
04/16/25 10:17 04/16/25 16:17 04/16/25 16:17 04/16/25 16:16 04/16/25 16:17
Physical Exam
General: Well Developed, Well Nourished and No Apparent Distress
HEENT: NormoCephalic, Moist mucous membranes and Atraumatic
Respiratory: Clear
Cardiac: S1/S2 and Regular Rhythm; No Murmur or Rub
GI: Soft, Non Tender, Non Distended and Normal Bowel Sounds; No Organomegaly
Rectal: Deferred by Provider
Musculoskeletal: No Clubbing, No Cyanosis and No Edema
Skin: No Rash
Neuro: Nonfocal/grossly intact
Laboratory Results
-
04/16/25 13:27
04/16/25 13:27
Data Reviewed
-
Lab Data: Labs Reviewed by me
Old Records: Reviewed
Impression/Plan
-
IMPRESSION:
PLAN:
# Increased left moderate pleural effusion secondary to adenocarcinoma on recent biopsy
-Recently had 2 L left thoracentesis
- Effusion was previously thought to be parapneumonic and was exudative
-Biopsy results show adenocarcinoma
-IR for thoracentesis
- Pulmonary consulted
# Leukocytosis may be from steroids
- Continue to monitor
# Hyperkalemia secondary to losartan
- Hold losartan
COPD
- Continue DuoNebs, desonide
Paroxysmal atrial fibrillation
- Continue metoprolol
- Continue Eliquis
Essential hypertension
- Hold losartan
Abdominal aortic aneurysm status post repair
Nicotine smoker
- Continue negative
Full code
DVT prophylaxis�Eliquis
Regular
[2025-04-16] MEDS: PULMICORT 0.5 MG INH (20:48)
[2025-04-16] MEDS: TOPROL XL 50 MG PO (21:50)
[2025-04-16] MEDS: ELIQUIS 5 MG PO (21:50)
[2025-04-17 06:02] LABS: Hematocrit 46.1 % (39.0-52.0); Hemoglobin 15.8 g/dL (13.0-18.0); Mean Corp Hgb Conc. 34.3 g/dL (33.0-37.0); Mean Corpuscular Volume 93.1 fL (80.0-94.0); Nucleated Red Blood Cells % 0 % (-); Platelet Count 255 10^3/uL (130-400); Red Cell Dist. Width 12.3 % (11.5-14.5)
[2025-04-17 06:16] LABS: ALT (SGPT) 20 U/L (0-50); AST (SGOT) 20 U/L (17-59); Albumin 3.0 g/dl (3.5-5.0); Alkaline Phosphatase 85 U/L (38-126); Blood Urea Nitrogen 15 mg/dl (9-20); Calcium 8.4 mg/dl (8.4-10.2); Carbon Dioxide 26 mmol/L (22-30); Chloride 107 mmol/L (98-107); Estimated Creatinine Clearance 91 ml/min; Glucose 101 mg/dl (70-99); Potassium 4.3 mmol/L (3.5-5.1); Sodium 137 mmol/L (135-145); Total Protein 5.4 g/dl (6.3-8.2); eGFR > 60.00
[2025-04-17] MEDS: DUONEB 3 ML INH ×2 (07:36→20:03)
[2025-04-17] MEDS: PULMICORT 0.5 MG INH ×2 (07:36→20:03)
[2025-04-17] MEDS: ELIQUIS 5 MG PO ×2 (08:03→20:35)
[2025-04-17] MEDS: NICODERM TRANSDERMAL 14 MG TRANSDERM (08:03)
[2025-04-17 08:06] VITALS: BP 139/82
--- NOTE | 2025-04-17 09:49 | CON.PUL ---
Consultation
Consultation Request
Date/Time Consultation Requested: 04/16/25
Date/Time Consultation Performed: 04/17/25
Performing Provider: Maximilian
Reason for Consultation: Effusion
Medical History
-
History of Present Illness:
79-year-old male past medical history of hypertension, abdominal aortic aneurysm status post repair, paroxysmal atrial fibrillation, COPD presenting with progressive shortness of breath over the past few days. He has slight cough. He has pain on
the left side of his back which he had when he previously had pleural effusion. Denies any fevers or chills. Denies any chest pain. Denies vomiting or diarrhea or lower extremity swelling. He did lose weight from the previous thoracentesis. He
is a smoker but he has not smoked in a few weeks. Has alcohol use.
Recent adm at d/c 04/06/25 for CAP treated with abx, L sided effusion s/p tap 04/03 w/ exudative effusion felt to be parapneumonic. Cyto with + adenoca.
Past Medical History
Past Medical History: Other (see list below)
Social History
Tobacco: Former Smoker
Alcohol: None
Drug: None
Allergies / Home Medications
Allergies
Allergy/AdvReac Type Severity Reaction Status Date / Time
No Known Allergies Allergy Verified 04/16/25 10:20
Home Medications
�Medication �Instructions �Recorded �Confirmed �Last Taken �Type
apixaban 5 mg tablet (Eliquis) 5 mg PO BID #60 tabs 05/06/17 04/16/25 04/16/25 Rx
losartan 50 mg tablet 50 mg PO DAILY Blood Pressure 07/03/20 04/16/25 04/16/25 History
acetaminophen 325 mg tablet 650 mg PO Q6HPRN PRN mild pain 04/03/25 04/16/25 04/02/25 History
(Tylenol)
metoprolol succinate 50 mg 50 mg PO HS Blood Pressure 04/03/25 04/16/25 04/15/25 History
tablet,extended release 24 hr
(Toprol XL)
budesonide 0.5 mg/2 mL suspension 0.5 mg (2 mL) inhalation R BID #60 04/06/25 04/16/25 04/15/25 Rx
for nebulization mL
ipratropium 0.5 mg-albuterol 3 mg 3 ml inhalation R BID #180 mL 04/06/25 04/16/25 04/15/25 Rx
(2.5 mg base)/3 mL nebulization
soln
nicotine 14 mg/24 hr daily 14 mg transdermal DAILY #28 ea 04/06/25 04/16/25 04/15/25 Rx
transdermal patch
albuterol sulfate 90 mcg/actuation 2 puff inhalation R Q6HPRN PRN 04/16/25 04/16/25 Unknown History
aerosol inhaler (Ventolin HFA) shortness of breath or wheezing
Review of Systems
-
History Source: Patient
All other systems: Negative unless noted
Vitals / Labs / Diagnostic Testing
Vital Signs
Temp Pulse Resp BP Pulse Ox
98.1 F 77 16 139/82 98
04/16/25 23:00 04/17/25 08:06 04/17/25 08:06 04/17/25 08:06 04/17/25 08:06
Lab Data
04/17/25 05:29
04/17/25 05:28
Diagnostic Testing:
Physical Exam
-
HEENT: Normocephalic, Anicteric and Moist Mucous Membranes
Cardiovascular: S1/S2 and Regular Rhythm
Respiratory: Clear and Non-Labored Respirations
GI: Soft, Non Distended and Non Tender
Neurology: Awake, Alert, Oriented and No Motor Deficits
Skin: Warm, Dry and Good Color
General: Comfortable and Other (NAD)
Assessment
-
79-year-old male past medical history of hypertension, abdominal aortic aneurysm status post repair, paroxysmal atrial fibrillation, COPD presenting with progressive shortness of breath over the past few days. He has slight cough. He has pain on
the left side of his back which he had when he previously had pleural effusion. Denies any fevers or chills. Denies any chest pain. Denies vomiting or diarrhea or lower extremity swelling. He did lose weight from the previous thoracentesis. He
is a smoker but he has not smoked in a few weeks. Has alcohol use.
Recent adm at d/c 04/06/25 for CAP treated with abx, L sided effusion s/p tap 04/03 w/ exudative effusion felt to be parapneumonic. Cyto with + adenoca. We are consulted for eval 04/16/25.
Primary lung adeno, stage IV - positive pleural fluid tap 04/03/25
Recurrent malignant pleural effusion
SOB
Leukocytosis
Hyperkalemia
Conditions present TOBACCO GROWER
Claudication of lower extremity
Chronic obstructive pulmonary disease
Essential (primary) hypertension
Tobacco abuse
Persistent atrial fibrillation, DCCV in ER 06/2020, Cardiac Ablation 06/16/22
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 Bah) 08/18/2015
Gastric ulcer (2012)
Osteoarthritis-right total hip replacement (2006)
Plan
Stable on RA
Has no baseline need for O2 by history
CXR with recurrent pleural effusion, CXR showing moderate L sided
Recent adm for CAP
Body fluid of the left pleural effusion negative so far. Cytopathology + for primary lung adenoca
Did not follow up in office, had appt today 04/17
IR consult for retap
If fluid re-accumulates we will discuss ASEPT placement
Repeat CXR in AM
If effusion not significant enough, can arrange as OP
Lung adeno, he is aware of diagnosis
FU with [place] as OP
Suspect COPD/chronic bronchitis-no PFTs available.
He was mildly bronchospastic on exam- now resolved since 04/05; diminished bilaterally
May continue nebulizer while in the hospital for secretion clearance; continue budesonide and DuoNebs BID
Acapella device for secretion clearance
Discharge home on budesonide + DuoNebs BID with Duonebs also q4-6hr prn SOB/wheezing; medication decision will be further discussed in the pulmonary office
Bedside poornima today
Smoking cessation encouraged
Agree with nicotine patch
Recommend outpatient pulmonary follow-up with pulmonary function testing etc. rule out COPD.
I reviewed plan extensively with patient
Missed his appt today 04/17, we will R/S for next week
We will follow
Diagnostic Data
Chest X-Ray: 04/16-Dense opacification lower half the left hemithorax suspicious for at least moderate left pleural effusion, increased from prior study.
04/03-Moderate left pleural effusion. New Findings suggesting moderate left lower lobe pneumonia. New Cardiomegaly. New.
CT Scan:
Echo: 05/04/22- Normal left ventricular size and systolic function. LV ejection fraction is 55-60% Mild tricuspid regurgitation. Mild mitral regurgitation. Aortic sclerosis without stenosis.
PFT's:
Reports and relevant images were personally reviewed.
Total time spent on this consultation/encounter __55__ minutes which includes review of history, physical exam, medications, laboratory data, personal review of imaging, extensive review of outpatient records, discussion with care team and
respiratory therapy.
[2025-04-17 10:53] LABS: LDH 228 U/L (120-246)
--- NOTE | 2025-04-17 10:54 | CON.ONC ---
Consultation
-
Date Consultation Requested: 04/17/25
Date Consultation Performed: 04/17/25
Requesting Provider: Dr. Jaden Gipson
Performing Provider: Dr. Roque Boyd
Reason for Consultation: Lung adenocarcinoma
Impression
Impression
left moderate pleural effusion
right pleural effusion s/p thora 04/03 cytology diagnostic for adenocarcinoma
PAF on DOAC
COPD on steroids
ETOH abuse
tobacco abuse
Plan
Plan
new lung adenocarcinoma from R thoracentesis 04/03
CT CAP with IVC
IR for L thora
f/u pulmonary consult
If recurrent malignant pleural effusions then may need to consider ASEPT catheter placement
tobacco and ETOH cessation
Optimize PT, OT, nutrition
Close OP follow up will be arranged upon discharge for treatment options
Patient History
History of Present Illness
79yo M who was hospitalized -04/06 for management of dyspnea and pleural effusion for which he underwent a right thoracentesis on 04/03 that was diagnostic for lung adenocarcinoma is now readmitted with shortness of breath. He reports progressive
SOB and occasional dry cough over several days. He reports left back pain as well that is fairly new. His admission labs are notable for mild leukocytosis 14.9, ANC 12.4, Hgb 16.3, platelet count 280,000 with normal renal function, LFTs, and
calcium. His is on DOAC for his hx of atrial fibrillation. He was admitted and given 1 dose of dexamethasone in the ER. His CXR shows a dense opacification lower half the left hemithorax suspicious for at least moderate left pleural effusion, which
has increased from prior study on 04/06/2025.
Clinically, he reports SOB, left back pain, and unintentional weight loss since late mar. He denies fever, chills, chest pain, palpitations, n/v/d/c or abdominal pain. He denies any overt bleeding.
Afebrile, no hypoxia or hypotension.
Past-Medical/Surgical History
PMH atrial fibrillation, Hypertension, abdominal aortic aneurysm, COPD, osteoporosis
PSH Bilateral total hip replacements, Endovascular repair abdominal aortic aneurysm
Social tobacco abuse, ETOH abuse, denies recreational drugs, retired,
Family non-contributory
Patient Medication
�Medication �Instructions �Recorded �Confirmed �Last Taken �Type
apixaban 5 mg tablet (Eliquis) 5 mg PO BID #60 tabs 05/06/17 04/16/25 04/16/25 Rx
losartan 50 mg tablet 50 mg PO DAILY Blood Pressure 07/03/20 04/16/25 04/16/25 History
acetaminophen 325 mg tablet 650 mg PO Q6HPRN PRN mild pain 04/03/25 04/16/25 04/02/25 History
(Tylenol)
metoprolol succinate 50 mg 50 mg PO HS Blood Pressure 04/03/25 04/16/25 04/15/25 History
tablet,extended release 24 hr
(Toprol XL)
budesonide 0.5 mg/2 mL suspension 0.5 mg (2 mL) inhalation R BID #60 04/06/25 04/16/25 04/15/25 Rx
for nebulization mL
ipratropium 0.5 mg-albuterol 3 mg 3 ml inhalation R BID #180 mL 04/06/25 04/16/25 04/15/25 Rx
(2.5 mg base)/3 mL nebulization
soln
nicotine 14 mg/24 hr daily 14 mg transdermal DAILY #28 ea 04/06/25 04/16/25 04/15/25 Rx
transdermal patch
albuterol sulfate 90 mcg/actuation 2 puff inhalation R Q6HPRN PRN 04/16/25 04/16/25 Unknown History
aerosol inhaler (Ventolin HFA) shortness of breath or wheezing
Active Medications
Generic Name Dose Route Start Last Admin
Trade Name Freq PRN Reason Stop Dose Admin
Acetaminophen 650 mg 04/16/25 20:29
Acetaminophen 325 Mg Tablet PO 05/14/25 20:28
Q6HPRN PRN
mild pain
Albuterol 2 puff 04/16/25 20:29
Albuterol Hfa [90 Mcg/Dose] Inhaler INH
R Q6HPRN PRN
shortness of breath or wheezin
Protocol
Albuterol/Ipratropium 3 ml 04/16/25 20:29 04/17/25 07:36
Ipratropium 0.5/Albuterol 3 Mg (3 Ml Ampul) INH 3 ml
R BID ARTURO Administration
Protocol
Apixaban 5 mg 04/16/25 22:00 04/17/25 08:03
Apixaban (Eliquis) 5 Mg Tablet PO 05/14/25 21:59 5 mg
BID ARTURO Administration
Budesonide 0.5 mg 04/16/25 20:29 04/17/25 07:36
Budesonide (Pulmicort Respules) 0.5 Mg/2 Ml INH 0.5 mg
R BID ARTURO Administration
Protocol
Metoprolol Succinate 50 mg 04/16/25 22:00 04/16/25 21:50
Metoprolol 50 Mg Extended Release Tablet PO 05/14/25 21:59 50 mg
HS ARTURO Administration
Nicotine 14 mg 04/17/25 08:00 04/17/25 08:03
Nicotine 14 Mg Patch TRANSDERM 05/15/25 07:59 14 mg
DAILY ARTURO Administration
Sodium Chloride 0 flush 04/16/25 22:00
Sodium Chloride 0.9% (Flush) Syringe IV 05/14/25 21:59
PER PROTOCOL ARTURO
Review of Systems
-
ROS is notable for HPI, otherwise negative
Physical Exam
-
General: No Apparent Distress
HEENT: Moist Mucous Membranes; Negative Jaundice
Pulmonary: Other (unlabored, diminished b/l bases)
GI: Soft
Extremities: Pulses Present
Neurology: Non Focal
Skin: Warm
Psych: Calm
Labs
Lab Results
WBC 15.0 10^3/uL (4.8-10.8) H 04/17/25 05:29
RBC 4.95 10^6/uL (4.70-6.10) 04/17/25 05:29
Hgb 15.8 g/dL (13.0-18.0) 04/17/25 05:29
Hct 46.1 % (39.0-52.0) 04/17/25 05:29
MCV 93.1 fL (80.0-94.0) 04/17/25 05:29
MCH 31.9 pg (27.0-31.0) H 04/17/25 05:29
MCHC 34.3 g/dL (33.0-37.0) 04/17/25 05:29
RDW 12.3 % (11.5-14.5) 04/17/25 05:29
Plt Count 255 10^3/uL (130-400) 04/17/25 05:29
MPV 9.7 fL (7.4-10.4) 04/17/25 05:29
Abs Immat Gran (auto) 0.1 10^3/uL (0-0.05) H 04/17/25 05:29
Absolute Neuts (auto) 12.7 10^3/uL (1.4-6.5) H 04/17/25 05:29
Absolute Lymphs (auto) 1.0 10^3/uL (1.2-3.4) L 04/17/25 05:29
Absolute Monos (auto) 1.1 10^3/uL (0.1-0.6) H 04/17/25 05:29
Absolute Eos (auto) 0.1 10^3/uL (0-0.7) 04/17/25 05:29
Absolute Basos (auto) 0.1 10^3/uL (0-0.2) 04/17/25 05:29
Immature Gran % 0.7 % (0-0.5) H 04/17/25 05:29
Neutrophils % 84.5 % (42.2-75.2) H 04/17/25 05:
Lymphocytes % 6.5 % (20.5-51.1) L 04/17/25 05:
Monocytes % 7.5 % (1.7-9.3) 04/17/25 05:
Eosinophils % 0.5 % (0-6) 04/17/25:
Basophils % 0.3 % (0-2) 04/17/25 05:
Creatinine 0.7 mg/dL (0.7-1.3) 04/17/25 05:28
Vital Signs
Vital Signs
Temp Pulse Resp BP Pulse Ox
98.1 F 77 16 139/82 98
04/16/25 23:00 04/17/25 08:06 04/17/25 08:06 04/17/25 08:06 04/17/25 08:06
[2025-04-17] MEDS: OMNIPAQUE 50 ML PO (12:08)
--- NOTE | 2025-04-17 13:52 | W.PN.HOSP.TC ---
Today's Communication/Plan
-
Thoracentesis pending
Onc Follow up
Assessment / Plan
Assessment / Plan
Physical Exam
General: Well Developed, Well Nourished and No Apparent Distress
HEENT: NormoCephalic, Moist mucous membranes and Atraumatic
Respiratory: Clear
Cardiac: S1/S2 and Regular Rhythm; No Murmur or Rub
GI: Soft, Non Tender, Non Distended and Normal Bowel Sounds; No Organomegaly
Rectal: Deferred by Provider
Musculoskeletal: No Clubbing, No Cyanosis and No Edema
Skin: No Rash
Neuro: Nonfocal/grossly intact
# Increased left moderate pleural effusion secondary to adenocarcinoma on recent biopsy
-Recently had 2 L left thoracentesis
- Effusion was previously thought to be parapneumonic and was exudative
-Biopsy results show adenocarcinoma
-IR for thoracentesis
- Pulmonary consulted - can f/u outpt
- Onc consulted - will add labs and set up initial appts
# Leukocytosis may be from steroids
- Continue to monitor
# Hyperkalemia
-likely secondary to losartan with steroids
- Hold losartan
COPD
- Continue DuoNebs, desonide
Paroxysmal atrial fibrillation
- Continue metoprolol
- Continue Eliquis
Essential hypertension
- Hold losartan
Abdominal aortic aneurysm status post repair
Nicotine smoker
- Continue negative
Full code
DVT prophylaxis�Eliquis
Regular
Anticipated Discharge: 24 - 48 hours
Subjective/Interval History
-
Date of Service: April 17, 2025
respiratory status improved with nebs; awaiting thora
Objective Data
-
Labs:
Laboratory Results
04/17/25 04/17/25
05:28 05:29
WBC 15.0 H
Hgb 15.8
Hct 46.1
Plt Count 255
Sodium 137
Potassium 4.3
Chloride 107
Carbon Dioxide 26
BUN 15
Creatinine 0.7
Glucose 101 H
Calcium 8.4
Total Bilirubin 1.1
AST 20
ALT 20
Alkaline Phosphatase 85
Vital Signs:
Vital Signs
Temp Pulse Resp BP Pulse Ox
98.1 F 77 16 139/82 98
04/16/25 23:00 04/17/25 08:06 04/17/25 08:06 04/17/25 08:06 04/17/25 08:06
I&O
04/16/25 04/17/25 04/18/25
06:59 06:59 06:59
Intake Total 480 / 480
Balance 480 / 480
Review of Systems
-
History Source: Patient
All other systems: Not reviewed unless documented
Data Reviewed
-
Diagnostic Radiology: Report Reviewed by me
Labs: Labs Reviewed by me
[2025-04-17 15:26] VITALS: BP 128/71
[2025-04-17] MEDS: TOPROL XL 50 MG PO (21:49)
[2025-04-17 23:23] VITALS: BP 131/81
[2025-04-18] MEDS: PULMICORT 0.5 MG INH (06:03)
[2025-04-18] MEDS: DUONEB 3 ML INH (06:03)
[2025-04-18 06:35] LABS: Hematocrit 45.7 % (39.0-52.0); Hemoglobin 15.1 g/dL (13.0-18.0); Mean Corp Hgb Conc. 33.0 g/dL (33.0-37.0); Mean Corpuscular Volume 96.0 fL (80.0-94.0); Platelet Count 227 10^3/uL (130-400); Red Cell Dist. Width 12.5 % (11.5-14.5)
[2025-04-18 07:05] LABS: ALT (SGPT) 22 U/L (0-50); AST (SGOT) 23 U/L (17-59); Albumin 2.7 g/dl (3.5-5.0); Alkaline Phosphatase 80 U/L (38-126); Blood Urea Nitrogen 14 mg/dl (9-20); Calcium 7.9 mg/dl (8.4-10.2); Carbon Dioxide 25 mmol/L (22-30); Chloride 107 mmol/L (98-107); Estimated Creatinine Clearance 91 ml/min; Glucose 125 mg/dl (70-99); Potassium 4.1 mmol/L (3.5-5.1); Sodium 135 mmol/L (135-145); Total Protein 5.1 g/dl (6.3-8.2); eGFR > 60.00
[2025-04-18 07:30] VITALS: BP 121/73
[2025-04-18 07:45] LABS: Glucose - Point of Care 102 mg/dl (70-99)
[2025-04-18] MEDS: NICODERM TRANSDERMAL 14 MG TRANSDERM (08:03)
[2025-04-18] MEDS: ELIQUIS 5 MG PO (08:04)
[2025-04-18 08:35] VITALS: BP 132/81; BP_SYST 70
[2025-04-18 09:00] VITALS: BP 117/59; BP_SYST 67
--- NOTE | 2025-04-18 09:06 | W.PN.PUL3 ---
Today's Communication / Plan
-
s/p thora today 04/18, agreeable to ASEPT but can arrange as OP
PFT w/ severe obstruction/COPD- add inhalers to continue at home, COPD education
We will arrange short term FU in 1 week, reviewed with team
Discharge planning per team
Assessment
-
79-year-old male past medical history of hypertension, abdominal aortic aneurysm status post repair, paroxysmal atrial fibrillation, COPD presenting with progressive shortness of breath over the past few days. He has slight cough. He has pain on
the left side of his back which he had when he previously had pleural effusion. Denies any fevers or chills. Denies any chest pain. Denies vomiting or diarrhea or lower extremity swelling. He did lose weight from the previous thoracentesis. He
is a smoker but he has not smoked in a few weeks. Has alcohol use.
Recent adm at d/c 04/06/25 for CAP treated with abx, L sided effusion s/p tap 04/03 w/ exudative effusion felt to be parapneumonic. Cyto with + adenoca. We are consulted for eval 04/16/25.
Primary lung adeno, stage IV - positive pleural fluid tap 04/03/25
Recurrent malignant pleural effusion s/p thora 04/18/25
SOB
Leukocytosis
Hyperkalemia
Severe COPD
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
Claudication of lower extremity
Chronic obstructive pulmonary disease
Essential (primary) hypertension
Tobacco abuse
Persistent atrial fibrillation, DCCV in ER 06/2020, Cardiac Ablation 06/16/22
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 Bah) 08/18/2015
Gastric ulcer (2012)
Osteoarthritis-right total hip replacement (2006)
Plan
Stable on RA
Has no baseline need for O2 by history
CXR with recurrent pleural effusion, CXR showing moderate L sided
Recent adm for CAP
Body fluid of the left pleural effusion negative so far. Cytopathology + for primary lung adenoca
Did not follow up in office, had appt today 04/17
IR consult for retap
If fluid re-accumulates we will discuss ASEPT placement
If effusion not significant enough, can arrange as OP
Lung adeno, he is aware of diagnosis
FU with [place] as OP
Suspect COPD/chronic bronchitis-no PFTs available.
He was mildly bronchospastic on exam- now resolved since 04/05; diminished bilaterally
May continue nebulizer while in the hospital for secretion clearance; continue budesonide and DuoNebs BID
Acapella device for secretion clearance
Discharge home on budesonide + DuoNebs BID with Duonebs also q4-6hr prn SOB/wheezing; medication decision will be further discussed in the pulmonary office
Bedside poornima today-- reviewed with patient - FEV1 1.17L 39%, ratio 41. Post FEV1 1.26L 42% with severe COPD
Will place on inhalers to continue at home, COPD education
Smoking cessation encouraged
Agree with nicotine patch
Recommend outpatient pulmonary follow-up with pulmonary function testing etc. rule out COPD.
I reviewed plan extensively with patient
Missed his appt today 04/17, we will R/S for next week
Discharge planning per team
Diagnostic Data
Chest X-Ray: 04/16-Dense opacification lower half the left hemithorax suspicious for at least moderate left pleural effusion, increased from prior study.
04/03-Moderate left pleural effusion. New Findings suggesting moderate left lower lobe pneumonia. New Cardiomegaly. New.
CT Scan:
Echo: 05/04/22- Normal left ventricular size and systolic function. LV ejection fraction is 55-60% Mild tricuspid regurgitation. Mild mitral regurgitation. Aortic sclerosis without stenosis.
PFT's:
Reports and relevant images were personally reviewed.
Total time spent on this consultation/encounter __51__ minutes which includes review of history, physical exam, medications, laboratory data, personal review of imaging, extensive review of outpatient records, discussion with care team and
respiratory therapy.
Subjective Data
-
Date of Service:
Date of Service: April 18, 2025
Chief Complaint: Pulmonary Follow Up
Subjective:
No new complaints, stable on RA
Christa completed this AM
Objective Data
Data Reviewed
Vital Signs / I&O / Oxygen:
Vital Signs
Temp Pulse Resp BP Pulse Ox
98.0 F 72 16 121/73 96
04/18/25 07:30 04/18/25 07:30 04/18/25 07:30 04/18/25 07:30 04/18/25 07:30
Intake and Output
04/17/25 04/18/25 04/19/25
06:59 06:59 06:59
Intake Total 480 / 480 960 / 960
Balance 480 / 480 960 / 960
SaO2 96
Physical Exam
General: Comfortable and Other (NAD)
HEENT: Normocephalic, Anicteric and Moist Mucous Membranes
Cardiovascular: S1-S2 and Regular Rhythm
Respiratory: Clear and Non-Labored Respirations
GI: Soft, Non Distended and Non Tender
Neurology: Awake, Alert, Oriented and No Motor Deficits
Skin: Warm, Dry and Good Color
Labs/Micro/Reports
Lab Data
04/18/25 05:47
04/18/25 05:47
--- NOTE | 2025-04-18 09:50 | PTCARENOTE ---
Pt back in room after L thoracentesis, 2 L removed. Pt reports feeling better, bandage c/d/i.
[2025-04-18 11:19] LABS: Body Fluid Second Tech CMB
--- NOTE | 2025-04-18 12:06 | W.PN.ONC2 ---
Today's Communication / Plan
-
discharge planning
Impression
Impression
left moderate pleural effusion
right pleural effusion s/p thora 04/03 cytology diagnostic for adenocarcinoma
PAF on DOAC
COPD on steroids
ETOH abuse
tobacco abuse
Plan
Plan
new lung adenocarcinoma from R thoracentesis 04/03
If recurrent malignant pleural effusions then may need to consider ASEPT catheter placement
CT Ab/pelvis showed no evidence of malignancy reviewed with pt and at bedside
tobacco and ETOH cessation
Optimize PT, OT, nutrition
Close OP follow up will be arranged upon discharge for treatment options
Subjective/Objective
Subjective
no new complaints
ambulating
Vital Signs:
Vital Signs
Temp Pulse Resp BP Pulse Ox
98.5 F 67 18 117/59 94
04/18/25 08:35 04/18/25 09:00 04/18/25 09:00 04/18/25 09:00 04/18/25 09:00
Lab Results:
Laboratory Data
WBC 10.9 10^3/uL (4.8-10.8) H 04/18/25 05:47
Hgb 15.1 g/dL (13.0-18.0) 04/18/25 05:47
Plt Count 227 10^3/uL (130-400) 04/18/25 05:47
eGFR > 60.00 04/18/25 05:47
Physical Exam
HEENT: Moist Mucous Membranes; No Jaundice
Pulmonary: Other (unlabored, diminished LLL)
GI: Soft
Extremities: Pulses Present
Neuro: Non Focal
Orders
Orders
Orders From Last 24 Hours
04/17/25 11:15
CT Chest/abd/pel W Iv Cont Routine
04/17/25 11:23
Iohexol [Omnipaque] See Protocol PO ONCE ONE
--- NOTE | 2025-04-18 12:19 | W.PN.HOSP.TC ---
Addendum entered and electronically signed by Jaden Gipson MD 04/19/25 16:25:
[id number]
Original Note:
Today's Communication/Plan
-
inhalers
Pulm, onc close f/u
ASept cath outpt
Assessment / Plan
Assessment / Plan
Physical Exam
General: Well Developed, Well Nourished and No Apparent Distress
HEENT: NormoCephalic, Moist mucous membranes and Atraumatic
Respiratory: Clear
Cardiac: S1/S2 and Regular Rhythm; No Murmur or Rub
GI: Soft, Non Tender, Non Distended and Normal Bowel Sounds; No Organomegaly
Rectal: Deferred by Provider
Musculoskeletal: No Clubbing, No Cyanosis and No Edema
Skin: No Rash
Neuro: Nonfocal/grossly intact
# Increased left moderate pleural effusion secondary to adenocarcinoma on recent biopsy
-Recently had 2 L left thoracentesis
-S/p thoracentesis 04/18 - improved status
- Pulmonary consulted - can f/u outpt - ASept placement as well
- Onc consulted - will add labs and set up initial appts- f/u closely
# Leukocytosis may be from steroids
- Continue to monitor
- CBC outpt
# Hyperkalemia
-likely secondary to losartan with steroids
- Hold losartan
-f/u bmp outpt
COPD
- Continue DuoNebs, desonide
Paroxysmal atrial fibrillation
- Continue metoprolol
- Continue Eliquis
Essential hypertension
- Hold losartan
-BP stable
Abdominal aortic aneurysm status post repair
Nicotine smoker
- Continue negative
PFT w/ severe obstruction/COPD
-Inhalers, COPD education
Full code
DVT prophylaxis�Eliquis
Regular
More than 30 minutes spent in discharge including
Final examination of the patient
Summarizing hospital stay
Instructions for continuing care to all relevant caregivers
Preparation of discharge records, prescriptions, and referral forms
Total time spent (in minutes): 36
Anticipated Discharge: Today
Subjective/Interval History
-
Date of Service: April 18, 2025
no acute events overnight
Objective Data
-
Labs:
Laboratory Results
04/18/25
05:47
WBC 10.9 H
Hgb 15.1
Hct 45.7
Plt Count 227
Sodium 135
Potassium 4.1
Chloride 107
Carbon Dioxide 25
BUN 14
Creatinine 0.7
Glucose 125 H
Calcium 7.9 L
Total Bilirubin 0.5
AST 23
ALT 22
Alkaline Phosphatase 80
Vital Signs:
Vital Signs
Temp Pulse Resp BP Pulse Ox
98.5 F 67 18 117/59 94
04/18/25 08:35 04/18/25 09:00 04/18/25 09:00 04/18/25 09:00 04/18/25 09:00
I&O
04/17/25 04/18/25 04/19/25
06:59 06:59 06:59
Intake Total 480 / 480 960 / 960
Balance 480 / 480 960 / 960
Review of Systems
-
History Source: Patient
All other systems: Not reviewed unless documented
Data Reviewed
-
Diagnostic Radiology: Report Reviewed by me
Labs: Labs Reviewed by me
--- NOTE | 2025-04-18 12:24 | W.DS.TRANS ---
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
-
Discharge Instructions:
Discharge Diagnosis/Procedures Increased left moderate pleural effusion
secondary to adenocarcinoma
Activity As tolerated
Blood Work cbc and cmp in 5 days
Instructions:
Stand-Alone Forms:
Changes to Home Medications: Yes
Discharge Medications:
DC Medications w/original date entered in [employer]
apixaban 5 mg tablet (Eliquis) 5 mg PO BID #60 tabs 05/06/17
losartan 50 mg tablet 50 mg PO DAILY Blood Pressure 07/03/20
Held on 04/18/25. Instructions: Resume on 05/21/25. hold until BMP checking K and PCP clears
acetaminophen 325 mg tablet (Tylenol) 650 mg PO Q6HPRN PRN mild pain 04/03/25
metoprolol succinate 50 mg tablet,extended release 24 hr (Toprol XL) 50 mg PO HS Blood Pressure 04/03/25
budesonide 0.5 mg/2 mL suspension for nebulization 0.5 mg (2 mL) inhalation R BID #60 mL 04/06/25
ipratropium 0.5 mg-albuterol 3 mg (2.5 mg base)/3 mL nebulization soln 3 ml inhalation R BID #180 mL 04/06/25
nicotine 14 mg/24 hr daily transdermal patch 14 mg transdermal DAILY #28 ea 04/06/25
albuterol sulfate 90 mcg/actuation aerosol inhaler (Ventolin HFA) 2 puff inhalation R Q6HPRN PRN shortness of breath or wheezing 04/16/25
budesonide-formoterol HFA 160 mcg-4.5 mcg/actuation aerosol inhaler (Symbicort) 2 puff inhalation R BID #10.2 grams 04/18/25
tiotropium bromide 2.5 mcg/actuation mist for inhalation (Spiriva Respimat) 2 puff inhalation R DAILY #4 grams 04/18/25
Home Medication Changes
budesonide-formoterol HFA 160 mcg-4.5 mcg/actuation aerosol inhaler (Symbicort) 2 puff inhalation R BID #10.2 grams 04/18/25
tiotropium bromide 2.5 mcg/actuation mist for inhalation (Spiriva Respimat) 2 puff inhalation R DAILY #4 grams 04/18/25
Pending Results: No
--- NOTE | 2025-04-18 12:46 | VNURNOTE ---
Reviewed chart. Plan is for pt to have pleurx drain placed as outpt. Home Health Liaison met with patient and spouse at bedside to discuss [facility] nurse/therapy, visits, schedule and homebound status. Patient is agreeable and understands that
visits at home will be 2-3 x per week to assess and teach medical management. Patient is aware that [facility] will contact them for start of care in 1-2 days after discharge from . Provided contact number for [facility].
[facility] referral completed in [facility].
--- NOTE | 2025-04-18 13:25 | CM ---
CM met with Maynor and his who live in a ranch style home with no steps to enter.
Patient is independent ambulation and adls. DME: shower seat in bathroom.
Pt admitted with shortness of breath; thoracentesis done with plan for outpatient visit with Information Technology Officer and [employer] catherter placement. [facility] following for [facility].
Plan: Discharge to home with [facility] services
PCP: Nirmala Garcia
Pharmacy: [facility]
[2025-04-18 14:06] VITALS: BP 122/60
== END 2025-04-18 14:31 | disposition home health service (06) | DRG 181 ==
LOC: 3 WEST ACU 16:41
PROVIDERS: Radiology Vascular & Interventional Radiology; ADMITTING PHYSICIAN Hospitalist; ATTENDING PHYSICIAN Internal Medicine; CONSULT PHYSICIAN Internal Medicine; CONSULT PHYSICIAN Internal Medicine Hematology & Oncology; EMERGENCY PHYSICIAN Emergency Medicine; FAMILY PHYSICIAN Family Medicine
PROC: 0W9B3ZZ Drainage of Left Pleural Cavity, Percutaneous Approach (ICD-10-PCS; 2025-04-18)
DX: C34.91 Malignant neoplasm of unspecified part of right bronchus or lung (principal); I48.19 Other persistent atrial fibrillation; J91.0 Malignant pleural effusion; J44.9 Chronic obstructive pulmonary disease, unspecified; Z11.52 Encounter for screening for COVID-19; F10.10 Alcohol abuse, uncomplicated; E87.5 Hyperkalemia; I10 Essential (primary) hypertension; Z86.79 Personal history of other diseases of the circulatory system; Z96.643 Presence of artificial hip joint, bilateral; F17.200 Nicotine dependence, unspecified, uncomplicated; Z79.01 Long term (current) use of anticoagulants; Z79.899 Other long term (current) drug therapy; Z79.51 Long term (current) use of inhaled steroids; I73.9 Peripheral vascular disease, unspecified; M81.0 Age-related osteoporosis without current pathological fracture
CPT/HCPCS: 32555; 71046; 71260; 74177; 80048; 80053; 82150; 82945; 82962; 83615; 83986; 84157; 84478; 85025; 85027; 87015; 87070; 87205; 87811; 89051; 93005; 94640; 96374; 99285; 99406; Q9967

== ENCOUNTER → 2025-04-24 13:56 | Outpatient (REF) | payer OTHER, SELFPAY ==
[2025-04-24 14:46] VITALS: BP 128/74; BP_SYST 65
== END ==
LOC: RADI 13:56
PROVIDERS: ATTENDING PHYSICIAN Nurse Practitioner Family; FAMILY PHYSICIAN Family Medicine
DX: J90 Pleural effusion, not elsewhere classified (principal)
CPT/HCPCS: 32555; 71045

== ENCOUNTER → 2025-04-28 07:55 | Outpatient (REF) | payer OTHER, SELFPAY ==
[2025-04-28] VITALS (10 sets, daily range): BP systolic 71–126; BP diastolic 65–76
[2025-04-28] MEDS: ANCEF 10 IV (08:50)
--- NOTE | 2025-04-28 15:53 | PN.IRAD.UPD ---
Update Note - [facility]
- -
post asept placement, took off 650ml of bloody fluid, dressed with gauze and teg, no complaints.
== END ==
LOC: RADI 07:55
PROVIDERS: ATTENDING PHYSICIAN Nurse Practitioner Family; FAMILY PHYSICIAN Family Medicine
DX: J90 Pleural effusion, not elsewhere classified (principal)
CPT/HCPCS: 32550; 99152; 99153

== ENCOUNTER → 2025-05-03 12:03 | Outpatient (REF) | payer OTHER, SELFPAY | LOC: MRI 3T 12:03 | PROVIDERS: ATTENDING PHYSICIAN Internal Medicine Hematology & Oncology; FAMILY PHYSICIAN Family Medicine | DX: C34.32 Malignant neoplasm of lower lobe, left bronchus or lung (principal) | CPT/HCPCS: 70553; 76014; A9575 ==

== ENCOUNTER → 2025-05-05 12:22 | Outpatient (REF) | payer OTHER, SELFPAY | LOC: RAD 12:22 | PROVIDERS: ATTENDING PHYSICIAN Internal Medicine Critical Care Medicine; FAMILY PHYSICIAN Family Medicine | DX: R07.89 Other chest pain (principal); J90 Pleural effusion, not elsewhere classified | CPT/HCPCS: 71046 ==

== ENCOUNTER → 2025-05-07 09:05 | Outpatient (REF) | payer OTHER, SELFPAY | LOC: PET 09:05 | PROVIDERS: ATTENDING PHYSICIAN Internal Medicine Hematology & Oncology | DX: C34.32 Malignant neoplasm of lower lobe, left bronchus or lung (principal) | CPT/HCPCS: 78815; A9552 ==

== ENCOUNTER → 2025-05-08 07:47 | Outpatient (REF) | payer OTHER, SELFPAY ==
--- NOTE | 2025-05-08 11:24 | PN.IRAD.UPD ---
Update Note - [facility]
- -
1300ML dark wiley removed via left ASEPT CATHETER. New,dry, clean dressing placed over site. Patient tolerated procedure well.
== END ==
LOC: RADI 07:47
PROVIDERS: ATTENDING PHYSICIAN Internal Medicine Critical Care Medicine; FAMILY PHYSICIAN Family Medicine
DX: J90 Pleural effusion, not elsewhere classified (principal)
CPT/HCPCS: 32561; J2997

== ENCOUNTER → 2025-05-12 08:03 | Outpatient (REF) | payer OTHER, SELFPAY ==
[2025-05-12 08:48] VITALS: BP 141/96; BP_SYST 87
--- NOTE | 2025-05-12 10:35 | PN.IRAD.UPD ---
Update Note - [facility]
- -
Left asept drained for 150 ml of yellow clear fluid. site cleaned and dressed post. Order from Dr. Katrina Yao to drain Asept pre port placement in [facility] today.
[2025-05-12 10:50] VITALS: BP 120/71
[2025-05-12] MEDS: ANCEF 10 IV (10:54)
[2025-05-12 10:55] VITALS: BP 119/77
[2025-05-12 11:00] VITALS: BP 114/79
[2025-05-12 11:11] VITALS: BP 108/60
== END ==
LOC: RADI 08:03
PROVIDERS: ATTENDING PHYSICIAN Internal Medicine Hematology & Oncology; FAMILY PHYSICIAN Family Medicine
DX: C34.32 Malignant neoplasm of lower lobe, left bronchus or lung (principal)
CPT/HCPCS: 36561; 76937; 77001; 99152; 99153; C1788

== ENCOUNTER → 2025-05-21 08:54 | Outpatient (REF) | payer OTHER, SELFPAY ==
[2025-05-21] VITALS (9 sets, daily range): BP systolic 97–146; BP diastolic 66–84
--- NOTE | 2025-05-21 13:17 | PTCARENOTE ---
0915 Alteplase 8mg and Dornase 5mg instilled by Riddhi Argueta RTR via left pleural asept catheter as ordered; to dwell for 2 hours. Patient instructed to rotate/turn every 15 minutes. At 1115 Riddhi Argueta drained asept for 900ml fluid. Cxr completed post
drainage. Patient instructed to f/u with Dr. Gray.
== END ==
LOC: RADI 08:54
PROVIDERS: ATTENDING PHYSICIAN Internal Medicine Critical Care Medicine; FAMILY PHYSICIAN Family Medicine
DX: J90 Pleural effusion, not elsewhere classified (principal)
CPT/HCPCS: 32561; 71045; J2997

== ENCOUNTER → 2025-06-19 08:10 | Outpatient (REF) | payer OTHER, SELFPAY | LOC: RAD 08:10 | PROVIDERS: ATTENDING PHYSICIAN Internal Medicine Critical Care Medicine; FAMILY PHYSICIAN Family Medicine | DX: C34.92 Malignant neoplasm of unspecified part of left bronchus or lung (principal) | CPT/HCPCS: 71046 ==